=== PATIENT | male | born 1975 | race Caucasian/White ===

== ENCOUNTER 2022-01-02 17:34 | Emergency (ER) | payer MEDICAID, SELFPAY ==
[2022-01-02 17:39] VITALS: BP 133/85; PULSE 75; RESP 18; TEMP 36.9; O2SAT 98
--- NOTE | 2022-01-02 17:45 | DI.RAD_ITS ---
Exam(s) XR SHOULDER RT COMPLETE 2+V EXAM: XR SHOULDER RT COMPLETE 2+V CLINICAL HISTORY: fall. TECHNIQUE: 2D digital imaging was performed of the right shoulder. Four images were obtained. AP, Grashey, Y-view and axillary views were obtained. COMPARISON: No exams were available for comparison FINDINGS: BONES: No acute fracture is present. No bony destructive lesion is seen. JOINTS: No dislocation present. Degenerative changes are seen at the acromioclavicular joint and in t he visualized thoracic spine. SOFT TISSUE: Normal. IMPRESSION: No acute abnormality. DATA REPOSITORY: RADIATION DOSE DELIVERED:
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
--- NOTE | 2022-01-02 18:30 | DI.VRAD_ITS ---
PROCEDURE INFORMATION: Exam: XR Right Shoulder Exam date and time: 01/02/2022 6:05 PM Age: 46 years old Clinical indication: Right shoulder pain, Fall TECHNIQUE: Imaging protocol: Radiologic exam of the Right shoulder. Views: 2 or more views. COMPARISON: No relevant prior studies available. FINDINGS: Bones/joints: No acute fracture. No dislocation. No AC joint separation. Thoracic spine degenerative changes. Soft tissues: No soft tissue radiopaque foreign body or soft tissue calcification. IMPRESSION: No acute findings. Dictated and Authenticated by: Louie Newberry MD. Ordering:JORDYN Gordon MD
== END 2022-01-02 19:01 | disposition home or self-care (01) ==
PROVIDERS: Emergency Provider Student in an Organized Health Care Education/Training Program
DX: S49.81XA Other specified injuries of right shoulder and upper arm, initial encounter (principal); V29.91XA Electric (assisted) bicycle rider (driver) (passenger) injured in unspecified traffic accident, initial encounter
CPT/HCPCS: 99283; 73030

== ENCOUNTER 2022-01-19 07:07 | Emergency (ER) | payer MEDICAID, SELFPAY ==
[2022-01-19] VITALS (27 sets, daily range): BP systolic 123–160; BP diastolic 66–83; PULSE 45–109; RESP 8–38; TEMP 36.4; O2SAT 95–100
--- NOTE | 2022-01-19 07:30 | DI.CT_ITS ---
Exam(s) CT ABDOMEN PELVIS W EXAM: CT ABDOMEN PELVIS W CLINICAL HISTORY: upper abd pain, r/o pancreatitis,biliary colic TECHNIQUE: COMPARISON: No exams were available for comparison FINDINGS: CT examination of the abdomen and pelvis was performed with bolus infusion of 100 cc of Omnipaque 350 . Images obtained through the lung bases are unremarkable. There is moderate gastric distention which is nonspecific. The liver appears normal with no evidence of a focal mass. Spleen is unremarkable in appearance.. Gallbladder has been surgically removed, bile ducts are unremarkable. Pancreas is unremarkable in appearance. Adrenals appear normal bilaterally. Kidneys appear normal with no evidence of renal mass, hydronephrosis, or nephrolithiasis. Unremarkab le bladder. There is no evidence of abdominal or pelvic adenopathy. Abdominal aorta is of normal diameter and no abnormality is seen involving major visceral branches.. Appendix is normal. No evidence diverticulitis or bowel obstruction. No significant abdominal wall hernia seen. Impression: Negative CT examination of the abdomen and pelvis. RADIATION DOSE DELIVERED: Total DLP Total DLP DATA REPOSITORY: All CT scans at this facility are submitted to the National Radiology Data Registry (NRDR) Dose Index Registry (DIR) with the [employer] (ACR). RADIATION OPTIMIZATION: All CT scans at this facility use at least one of these dose optimization te chniques: automated exposure control; mA and/or kV adjustment per patient size (includes targeted exa ms where dose is matched to clinical indication); or iterative reconstruction.
--- NOTE | 2022-01-19 07:37 | ED.GENADUL_ITS ---
Discharge Plan Disposition Patient Disposition: Home Condition: Improving Discharge Details Clinical Impression: Nausea & vomiting Primary Care Provider: [facility]elineLocal ED Provider: Evan Vargas Home Meds and New Rx's Prescriptions: No Action divalproex [Depakote] 500 mg Tablet,Delayed Release (Dr/Ec) See Rx Instructions .ROUTE .COMPLEX Rx Instructions: Take 1000 mg in the AM and 1500 at night Discharge Instructions Instructions: Acute Nausea and Vomiting (ED) Additional Instructions: Please follow-up with primary care and GI as needed. Please return to the emergency department for any worsening symptoms. Discharge Data Discharge Date/Time-TO BE ENTERED AT DEPARTURE: 01/19/22 09:36 Medical Decision Making <Lacy Apple DO - Last Filed: 01/23/22 15:02> Dr. Apple 0730 -- 46-year-old male with history of pancreatitis and former alcohol use presents for upper abdominal pain and vomiting for the past 2 days. Blood pressure is moderately elevated. He is afebrile. Patient appears significantly uncomfortable, holding abdomen, moaning, writhing in stretcher and occasionally vomiting light brown in emesis bag. No hematemesis noted. His abdomen appears tense and is tender in the upper abdomen but there is no significant rigidity, guarding or peritoneal signs. Differential diagnosis includes pancreatitis, gastritis, biliary colic, cholecystitis, gastroenteritis. We will place an IV, bolus IV fluids, screening labs, CT abdomen and pelvis and give a dose of IV Dilaudid, IV Zofran and reassess. 0800 -- Case endorsed to Dr. Vargas to follow up on labs and imaging and final disposition. Dr. Vargas 9: 22 patient resting comfortably still endorsing some nausea and dry heaving. Consider component of gastroparesis. No evidence of obstruction on CT. Labs largely unremarkable lipase normal. Consider viral versus foodborne versus medication related as patient is on valproic acid. Will trial droperidol, close reassessment, likely discharge home with GI follow-up and primary care 9: 33 patient no longer vomiting. Patient is adamant that he needs to leave immediately as his wants to pick him up. Patient was given primary care and GI follow-up. Medical Records Medical records reviewed: Yes I reviewed the patient's medical records. <Evan Vargas MD - Last Filed: 01/19/22 09:36> 46-year-old male with history of pancreatitis and former alcohol use presents for upper abdominal pain and vomiting for the past 2 days. Pressure is elevated. He is afebrile. Patient appears significantly uncomfortable, holding abdomen, moaning, writhing in stretcher and occasionally vomiting light brown in emesis bag. No hematemesis noted. His abdomen appears tense and is tender in the upper abdomen but there is no significant rigidity, guarding or peritoneal signs. Differential diagnosis includes pancreatitis, gastritis, biliary colic, cholecystitis, gastroenteritis. We will place an IV, bolus IV fluids, screening labs, CT abdomen and pelvis and give a dose of IV Dilaudid, IV Zofran and reassess. 9: 22 patient resting comfortably still endorsing some nausea and dry heaving. Consider component of gastroparesis. No evidence of obstruction on CT. Labs largely unremarkable lipase normal. Consider viral versus foodborne versus medication related as patient is on valproic acid. Will trial droperidol, close reassessment, likely discharge home with GI follow-up and primary care 9: 33 patient no longer vomiting. Patient is adamant that he needs to leave immediately as his wants to pick him up. Patient was given primary care and GI follow-up. Sign Out No HPI <Lacy Apple, - Last Filed: 01/23/22 15:02> General Mode of arrival: ambulatory . Date/Time Provider Initiated Documentation: 01/19/22 07:11 . Limitations to Documentation: no limitations . Information obtained by: patient . HPI Narrative: Patient is a 46-year-old male with a history of pancreatitis presents to the ED with complaint of vomiting and upper abdominal pain for the past 2 days. Aaron gaitan describes the pain as constant, burning and sharp located mostly in the upper abdomen. He states he has been vomiting multiple times daily and states it is brown and looks like shit. He denies any hematemesis. He states he has not drank any alcohol for the past 2 years. He states he smokes marijuana but denies any other drug use. He took Tylenol earlier today without relief. He states he drove himself to the emergency department. He states he has been having normal bowel movements and denies any diarrhea or rectal bleeding. He denies any known fever or urinary symptoms. Related Data Home Medications Medication Instructions Recorded Confirmed divalproex 500 mg tablet,delayed See Rx Instructions .Route .COMPLEX 01/19/22 01/19/22 release (Depakote) Allergies Allergy/AdvReac Type Severity Reaction Status Date / Time No Known Allergies Allergy Unverified 01/19/22 07:18 General Stated Complaint: Abd Prob JENNIFER: 3 Review of Systems <Lacy Apple DO - Last Filed: 01/23/22 15:02> All systems reviewed & are unremarkable except as noted in HPI and below Constitutional Constitutional: Reports as per HPI, Denies chills and Denies fever(s) Eyes Eyes: Denies blurry vision ENT Ears, Nose, Mouth, and Throat: Denies dizziness, Denies sore throat and Denies throat swelling Cardiovascular Cardiovascular: Denies chest pain and Denies dyspnea Respiratory Respiratory: Denies cough and Denies dyspnea Gastrointestinal Gastrointestinal: Reports abdominal pain, Denies diarrhea and Reports vomiting Genitourinary Genitourinary: Denies hematuria and Denies dysuria Musculoskeletal Musculoskeletal: Denies back pain and Denies numbness Integumentary/Breasts Skin/Breast: Denies lesions and Denies rash Neurologic Neurologic: Denies dizziness, Denies localized weakness and Denies numbness Allergic/Immunologic Allergic/Immunologic: Denies throat swelling PFSH <Lacy Apple DO - Last Filed: 01/23/22 15:02> All Active Problems (Updated 01/19/22 @ 09:35 by Evan Vargas MD) Nausea & vomiting (Acute) Acute pain of right shoulder (Acute) Medical History (Updated 01/19/22 @ 09:35 by Evan Vargas MD) Bipolar affective disorder Surgical History (Updated 01/19/22 @ 07:54 by Lacy Apple DO) No significant past surgical history Social History Smoking/Tobacco Use Status: Current every day Tobacco Type: cigarettes Smoking risk assessment performed?: Yes Alcohol Intake: former Drug use: Never Substance use type: does not use Do you feel safe at home: Yes Do you feel safe in your relationship?: Yes Exam <Lacy Apple DO - Last Filed: 01/23/22 15:02> Const General: cooperative and uncomfortable Orientation: alert, awake and oriented x3 Other: Writhing around stretcher moaning and holding his abdomen and emesis bag. HENMT Head: normal to inspection Face and sinus: normal facial exam Eyes General: appearance normal, both eyes and all related structures Pupils: PERRL EOM: EOM intact bilaterally Neck Neck: normal visual inspection and No submandibular swelling Lymphatic: no lymphadenopathy noted Chest Chest: normal inspection of the chest and no tenderness Resp Effort & Inspection: normal respiratory effort and able to speak in complete sentences Auscultation: clear to auscultation bilaterally Cardio Rate: regular rate Rhythm: regular rhythm GI Inspection: normal to inspection Palpation: soft, not firm, not rigid and tender in the epigastrum, in the LUQ and in the RUQ Auscultation: hypoactive bowel sounds Skin General skin exam: no rashes or lesions noted Neuro General: patient alert, patient awake and patient oriented x3 Cognition: normal cognition Speech: speech normal Motor: muscle tone normal throughout Sensory Exam: no sensory deficits noted Extrem General: normal to inspection, full ROM, capillary refill normal, no calf tenderness bilaterally and no edema Psych Appearance: grossly normal Mental Status: mental status grossly normal Speech and Movement: speech and movement normal Affect: normal affect Course <DO Sangita Mena Last Filed: 01/23/22 15:02> Vital Signs Vital signs: Vital Signs Temperature 97.5 F L 01/19/22 07:12 Pulse 55 L 01/19/22 07:12 Respiratory Rate 14 01/19/22 07:12 Blood Pressure 148/82 H 01/19/22 07:12 Pulse Oximetry 99 01/19/22 07:12 Temperature 97.5 F L 01/19/22 07:12 Temperature Source Temporal Artery Scan 01/19/22 07:12 Pulse 55 L 01/19/22 07:12 Respiratory Rate 14 01/19/22 07:12 Respiratory Effort Non-Labored 01/19/22 07:15 Blood Pressure 148/82 H 01/19/22 07:12 Blood Pressure Position Sitting 01/19/22 07:12 Pulse Oximetry 99 01/19/22 07:12 Oxygen Delivery Method Room Air 01/19/22 07:12 Oxygen Flow Rate 0 01/19/22 07:12 Pain Level 10 01/19/22 07:15 Sign Out <DO Sangita Mena Filed: 01/23/22 15:02> Sign Out Data: Sign Out Comment: Vomiting and upper abdominal pain for 2 days. History of pancreatitis. Follow-up on labs and imaging and final disposition. Last updated by Lacy Apple DO at 01/19/22 07:39
[2022-01-19 07:43] LABS: Abs Immature Grans 0.04 10^3/uL (0.0-0.06); Absolute Eosinophil Count 0.44 10^3/uL (0.0-0.7); Absolute Monocyte Count 0.85 10^3/uL (0.1-0.8); Basophils % 0.9; Eosinophils % 3.8; HCT 42.9 % (40.0-50.0); HGB 14.3 g/dL (13.5-17.5); Immature Grans % 0.3; Lymphocytes % 24.3; MCH 29.9 pg (27.0-33.0); MCHC 33.3 % (32.0-36.0); MCV 90 fL (80-95); MPV 11.5 fL (8.0-11.0); Monocytes % 7.4; Neutrophils % 63.3; Platelet Count 271 10^3/uL (130-400); RBC 4.78 10^6/uL (4.36-5.78); RDW 12.6 % (11.8-14.1); RDW-SD 41.5 fL; WBC 11.54 10^3/uL (4.4-10.8)
[2022-01-19] MEDS: HYDROmorphone 2 MG/ML SYR 1 MG IVP (07:46)
[2022-01-19] MEDS: Normal Saline 1,000 ML 1000 ML IV (07:46)
[2022-01-19] MEDS: Ondansetron 4 MG/2 ML VIAL IVP (07:46)
[2022-01-19 08:03] LABS: ALT 15 U/L (16-63); AST 13 U/L (15-37); Albumin 3.9 g/dL (3.4-5.0); Alkaline Phosphatase 71 U/L (46-116); BUN 18 mg/dL (7-18); Bilirubin, Total 0.3 mg/dL (0.2-1.0); CREATININE 0.9 mg/dL (0.70-1.30); Calcium 9.2 mg/dL (8.5-10.1); Chloride 103 mmol/L (98-107); Estimated GFR 106.67 (mL/min/1.73m2); Glucose 122 mg/dL (74-106); Lipase 237 U/L (73-393); Magnesium 1.8 mg/dL (1.8-2.4); Sodium 139 mmol/L (136-145)
[2022-01-19 08:06] LABS: Troponin I < 50 ng/L (<or=60)
[2022-01-19] MEDS: Omnipaque 350 MG/ML 100 ML BTL IJ (08:09)
[2022-01-19] MEDS: Normal Saline - Diluent 50 ML VIAL IJ (08:09)
--- NOTE | 2022-01-19 09:13 | DI.VRAD_ITS ---
PROCEDURE INFORMATION: Exam: CT Abdomen And Pelvis With Contrast Exam date and time: 01/19/2022 7:58 AM Age: 46 years old Clinical indication: Abdominal pain TECHNIQUE: Imaging protocol: Computed tomography of the abdomen and pelvis with contrast. COMPARISON: No relevant prior studies available. FINDINGS: Limitations: Paucity of fat. Liver: Normal. No mass. Gallbladder and bile ducts: The gallbladder is surgically absent. No biliary dilatation. Pancreas: Normal. No ductal dilation. Spleen: Normal. No splenomegaly. Adrenal glands: Normal. No mass. Kidneys and ureters: Normal. No hydronephrosis. Stomach and bowel: Non-specific moderate to marked distention of the stomach with fluid. Moderate stool burden. No other gross bowel abnormalities. No obstruction. Appendix: Normal appendix. Intraperitoneal space: Unremarkable. No free air. No significant fluid collection. Vasculature: Unremarkable. No abdominal aortic aneurysm. Lymph nodes: Unremarkable. No enlarged lymph nodes. Urinary bladder: Unremarkable as visualized. Reproductive: Unremarkable as visualized. Bones/joints: Scattered small bone islands in the right acetabulum and right femoral head. No acute or suspicious osseous abnormalities. Grade 1 retrolisthesis of L5 on S1. Moderate degenerative changes of the lower thoracic spine. Chronic appearing mild loss of height of the T11 vertebral body. Soft tissues: Unremarkable. IMPRESSION: 1. Non-specific moderate to marked distention of the stomach with fluid. No focally obstructing mass is identified. These findings could be seen in the setting of gastroparesis. If indicated, radionuclide gastric emptying study may be considered for further evaluation. 2. Moderate stool burden. Dictated and Authenticated by: Sanjana Romano MD. Ordering:SERAFIN House MD
[2022-01-19] MEDS: Droperidol 5 MG/2 ML VIAL 1.25 MG IVP (09:24)
== END 2022-01-19 09:36 | disposition home or self-care (01) ==
PROVIDERS: Physician Assistant; Emergency Provider Emergency Medicine
DX: R11.2 Nausea with vomiting, unspecified (principal); R10.10 Upper abdominal pain, unspecified; R10.816 Epigastric abdominal tenderness; R10.811 Right upper quadrant abdominal tenderness; R10.812 Left upper quadrant abdominal tenderness; Z87.19 Personal history of other diseases of the digestive system
CPT/HCPCS: 36415; 80053; 83690; 96361; 96374; 96375; 99285; 74177; 83735; 84484; 85025; 99284; J1170; J1790; J2405; J3490

== ENCOUNTER 2022-04-14 00:41 | Outpatient (CLI) | payer MEDICAID, SELFPAY ==
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
== END 2022-04-14 01:01 ==
LOC: DI 00:42
PROVIDERS: Visit Provider Student in an Organized Health Care Education/Training Program
DX: M75.101 Unspecified rotator cuff tear or rupture of right shoulder, not specified as traumatic (principal)
CPT/HCPCS: 73221

== ENCOUNTER 2022-06-13 09:55 | Outpatient (REF) | payer MEDICAID, SELFPAY ==
[2022-06-14 13:35] LABS: Chlamydia Result Negative (Negative); GC Result Negative (Negative)
== END 2022-06-13 09:56 | disposition home or self-care (01) ==
LOC: LBN 09:55
PROVIDERS: PCP Nurse Practitioner; Referring Provider Nurse Practitioner; Visit Provider Nurse Practitioner
DX: R30.0 Dysuria (principal)
CPT/HCPCS: 87491; 87591; 87086

== ENCOUNTER 2022-08-14 16:13 | Emergency (ER) | payer MEDICAID, SELFPAY ==
[2022-08-14 16:14] VITALS: BP 142/78; PULSE 71; RESP 17; TEMP 36; O2SAT 98
--- NOTE | 2022-08-14 18:02 | NUR.NOTE ---
Nursing Note: Pt left without being seen
== END 2022-08-14 18:34 | disposition left against medical advice (07) ==
PROVIDERS: PCP Nurse Practitioner
DX: Z53.21 Procedure and treatment not carried out due to patient leaving prior to being seen by health care provider (principal)

== ENCOUNTER 2022-08-16 23:40 | Emergency (ER) | payer MEDICAID, SELFPAY ==
[2022-08-16 23:43] VITALS: BP 137/84; PULSE 110; RESP 19; TEMP 36.2; O2SAT 97
--- NOTE | 2022-08-17 | DI.CT_ITS ---
Exam(s) CT LUMBAR SPINE RECONS CT ABDOMEN PELVIS WO EXAM: CT ABDOMEN PELVIS WO CLINICAL HISTORY: right lower back pain and right leg numbness. TECHNIQUE: Imaging Protocol: Axial computed tomography images with coronal and sagittal reformatted images were created and reviewed. Images of the lumbar spine were reconstructed using bone algorithm . Oral: no COMPARISON: CT CT ABDOMEN PELVIS W from 01/19/[address] LUMBAR SPINE RECONS from 08/17/2022 FINDINGS: ABDOMEN: Lung Bases: Normal where visualized. Liver: Normal density. No measurable mass. Gallbladder and biliary tract: Status post cholecystectomy no radiodense calculus or dilation. Pancreas: Normal density, no abnormal calcifications or inflammatory process. Spleen: Normal. Kidneys: Normal size, contour and axis. No radiodense stones or obstructive uropathy. No masses seen. Adrenal glands: No masses seen. Lymph nodes: Within normal limits. Abdominal Aorta: Abdominal portion non-dilated. Lumbar spine: No acute fractures. Endplate osteophytes in the lower thoracic and lumbar levels. Baas trup's disease. Mild facet degenerative changes. No spondylolysis or spondylolisthesis. Mild disc bulging. L5 laminectomy defect. No gross evidence of focal disc herniation. Bilateral neural yesi inal narrowing at L4-5 and L5-S1. PELVIS: Bladder: Symmetric distention, no gross wall thickening. Bowel: Large quantity of stool noted throughout the colon. No obstruction or bowel wall thickening. Appendix normal. Peritoneal cavity: No ascites, collection or mesenteric inflammatory response. Reproductive organs: Within normal limits. Bones: Within normal limits. IMPRESSION: Large quantity of stool throughout the colon consistent with constipation. No evidence of bowel obst ruction. No acute abnormality in the lumbar spine. Degenerative changes noted. RADIATION DOSE DELIVERED: 594.61 mGy.cm Total DLP DATA REPOSITORY: All CT scans at this facility are submitted to the National Radiology Data Registry (NRDR) Dose Index Registry (DIR) with the [employer] (ACR). RADIATION OPTIMIZATION: All CT scans at this facility use at least one of these dose optimization te chniques: automated exposure control; mA and/or kV adjustment per patient size (includes targeted exa ms where dose is matched to clinical indication); or iterative reconstruction.
--- NOTE | 2022-08-17 00:03 | ED.GENADUL_ITS ---
Discharge Plan Disposition Patient Disposition: Home Condition: Good Discharge Details Clinical Impression: Low back pain radiating to right leg Primary Care Provider: Jinny Hogan ED Provider: Samir Hazel Home Meds and New Rx's Prescriptions: New lidocaine [Lidoderm] 5 % adhesive patch,medicated 1 patch Topical Q24H Qty: 15 0RF prednisone 50 mg tablet 50 mg PO DAILY Qty: 5 0RF No Action divalproex [Depakote] 500 mg tablet,delayed release (DR/EC) 500 mg PO DAILY Qty: 90 0RF bupropion HCl [Wellbutrin XL] 300 mg tablet extended release 24 hr 300 mg PO QAM Qty: 90 0RF lorazepam [Ativan] 0.5 mg tablet 0.5 mg PO BID Qty: 60 0RF buprenorphine-naloxone 8-2 mg tablet, sublingual 2.5 tab sublingual DAILY gabapentin 600 mg tablet 600 mg PO BID Qty: 8 0RF albuterol sulfate 90 mcg/actuation HFA aerosol inhaler 2 puff inhalation Q4H PRN Discharge Instructions Instructions: Lumbar Radiculopathy (ED) Additional Instructions: At this time your symptoms are concerning for what is called lumbar radiculopathy. You do have notable disc disease and disc bulging, however thankfully her symptoms are inconsistent with compression of your spinal cord. The irritation of your nerves can cause significant pain and take a fair bit of time to heal. I expect 1 to 2 months for potential resolution. In the meantime do not lift anything greater than 5 pounds for the next 2 weeks. Avoid any significant vigorous physical activity. Perform easy gentle regular activities at home without any significant bending or lifting. Please take the steroids as directed. You have been given a prescription for Lidoderm patch. If your insurance does not cover this you can get [id number] Lidoderm patches at 4% which are almost just as effective. Please take the pain pills only as needed for breakthrough pain, do not take it when driving or operating any vehicles or heavy machinery, swimming, taking long baths, or operating firearms. Please use a heating pad as often as possible on your back. Perform daily gentle stretches on your back. Please continue to take the Tylenol and Motrin. You can take 1000 mg of Tylenol every 6 hours and 600 mg of ibuprofen every 6 hours. We have placed a referral with the [facility] for follow-up. Please discuss with your primary care provider potential further imaging of nonemergent MRI on an outpatient basis If you notice any worsening of your symptoms, or any new symptoms such as vomiting, diarrhea, fever, chills, shortness of breath, chest pain, numbness or tingling in your groin or legs, weakness in your legs, loss of control for your bowels or bladder, or fainting , please return immediately to the emergency department for reevaluation. Please follow up with your primary care provider as soon as possible for reassessment and reevaluation. As always, it was a pleasure participating in your medical care today. Referrals: Jinny Hogan NP [Primary Care Provider] - Medical Decision Making This is a 46-year-old male with a previous history of substance abuse and alcohol use, COPD, hepatitis C, hypertension, bipolar type I, previous back injury, who presents today for right lower back pain. Patient states that about 2 to 3 weeks ago he was working, stepped funny and developed sudden onset right lower back pain. Pain is continued. Over the last 2 to 3 days he has had tingling and weakness down his right lower extremity all the way to his heel. Patient denies any saddle anesthesia, numbness or tingling in the groin, change in sensation when wiping. Patient denies any change in sensation during sexual intercourse, difficulty achieving or maintaining an erection or ejaculation, bowel or bladder incontinence, leakage, or retention. Patient denies any atypical falls or imbalance. He has not taken any NSAIDs today. Pain is made worse when he stands or bends or walks. Improved by nothing. No other complaints at this time. He denies any IV or illicit drug use currently. Exam seems to demonstrate tenderness over the right SI joint, no midline lumbar spine tenderness though. No saddle anesthesia, subjective tingling going down the lateral aspect of the leg and to the heel but intact sensation. Normal strength for the right lower extremity compared to the left, normal vascular exam. However patient does demonstrate slower and more restricted movement for the right lower extremity compared to the left. Additionally he does appear to demonstrate slight diminishment in strength for flexion of the right knee in comparison to the left. He still does demonstrate good dorsiflexion plantarf lexion of the great toe. Differential includes lumbar radiculopathy, SI joint pathology/sacroiliitis. Fracture less likely. Symptoms appear clinically inconsistent with cauda equina syndrome at this time. We will give prednisone, Toradol, acetaminophen and Lidoderm patch for treatment of suspected mild radiculopathy, muscle spasm and potential SI joint pain. We will get CT scan of the L-spine, monitor closely and reassess. No current clinical indications for emergent MRI. 2:[address] scan of the abdomen pelvis shows no acute process, CT scan of the lumbar spine shows evidence of multiple broad-based disc bulges at L4-L5, L3-L4, and L5-S1. No evidence of cord compression though. Clinically there is no evidence of cord compression from the central component, or cauda equina. I do suspect he has peripheral radiculopathy causing his right leg symptoms at this time. We will give steroids for home use, Lidoderm patches, recommend continued Tylenol and Motrin. Will give 4 tablets of [place] to use for breakthrough pain only. Will place referral for [facility] clinic, and recommend close outpatient follow-up with his PCP for nonemergent further MRI. I have extensively reviewed the treatment plan and discharge instructions with the patient. I have addressed all patient concerns at this time. The patient was made aware of what symptoms to monitor for that would warrant a return to the emergency department. Discussed the plan with the patient, they demonstrate verbal understanding and agreement with our assessment and plan at this time. The documentation in this chart was dictated using [employer] dictation software. Please excuse any dictation errors. FINDINGS: Bones/joints: No acute fracture. Normal alignment. L1-L2: No significant disc bulge or herniation. No severe spinal canal stenosis. No significant neural foraminal narrowing. L2-L3: No significant disc bulge or herniation. No severe spinal canal stenosis. No significant neural foraminal narrowing. L3-L4: Intervertebral disc space narrowing. Broad-based disc bulge, ligamentum flavum hypertrophy and hypertrophic facet arthropathy, resulting in mild central canal stenosis. Mild bilateral foraminal stenosis. L4-L5: Intervertebral disc space narrowing. Broad-based disc bulge, resulting in effacement of the anterior thecal sac. Ligamentum flavum hypertrophy and hypertrophic facet arthropathy, resulting in moderate central canal stenosis. Bilateral foraminal stenosis. L5-S1: Intervertebral disc space narrowing. Broad-based disc bulge, resulting in effacement of the anterior thecal sac. Mild central canal stenosis. Mild bilateral foraminal stenosis. Soft tissues: Please refer to dedicated CT of the abdomen and pelvis. IMPRESSION: Degenerative changes. No acute findings are evident. Thank you for allowing us to participate in the care of your patient. Dictated and Authenticated by: Ankit Perez MD 08/17/2022 1:58 AM Eastern Time ([place] & [place]) FINDINGS: Liver: Normal. No mass. Gallbladder and bile ducts: Cholecystectomy Pancreas: Normal. No ductal dilation. Spleen: Normal. No splenomegaly. Adrenal glands: Normal. No mass. Kidneys and ureters: Nonobstructive nephrolithiasis on the right. Stomach and bowel: Unremarkable. No obstruction. No mucosal thickening. Appendix: No evidence of appendicitis. Intraperitoneal space: Unremarkable. No free air. No significant fluid collection. Vasculature: Unremarkable. No abdominal aortic aneurysm. Lymph nodes: Unremarkable. No enlarged lymph nodes. Urinary bladder: Unremarkable as visualized. Reproductive: Unremarkable as visualized. Bones/joints: Unremarkable. No acute fracture. Soft tissues: Unremarkable IMPRESSION: 1. No acute findings. 2. There is a significant volume of retained stool within the colon. 3. Nonobstructive nephrolithiasis on the right. Thank you for allowing us to participate in the care of your patient. Dictated and Authenticated by: Ankit Perez MD 08/17/2022 1:55 AM Eastern Time ([place] & [place]) HPI General Date/Time Provider Initiated Documentation: 08/16/22 23:54 . HPI Narrative: This is a 46-year-old male with a previous history of substance abuse and alcohol use, COPD, hepatitis C, hypertension, bipolar type I, previous back injury, who presents today for right lower back pain. Patient states that about 2 to 3 weeks ago he was working, stepped funny and developed sudden onset right lower back pain. Pain is continued. Over the last 2 to 3 days he has had tingling and weakness down his right lower extremity all the way to his heel. Patient denies any saddle anesthesia, numbness or tingling in the groin, change in sensation when wiping. Patient denies any change in sensation during sexual intercourse, difficulty achieving or maintaining an erection or ejaculation, bowel or bladder incontinence, leakage, or retention. Patient denies any atypical falls or imbalance. He has not taken any NSAIDs today. Pain is made worse when he stands or bends or walks. Improved by nothing. No other complaints at this time. He denies any IV or illicit drug use currently. Related Data Home Medications Medication Instructions Recorded Confirmed buprenorphine 8 mg-naloxone 2 mg 2.5 tab sublingual DAILY 04/18/22 08/14/22 sublingual tablet albuterol sulfate 90 mcg/actuation 2 puff inhalation Q4H PRN 05/31/22 08/14/22 aerosol inhaler bupropion HCl 300 mg 24 hr tablet, 300 mg PO QAM #90 tabs 06/13/22 08/14/22 extended release (Wellbutrin XL) divalproex 500 mg tablet,delayed 500 mg PO DAILY #90 tabs 06/13/22 08/14/22 release (Depakote) lorazepam 0.5 mg tablet (Ativan) 0.5 mg PO BID #60 tabs 06/13/22 08/14/22 gabapentin 600 mg tablet 600 mg PO BID #8 tabs 07/14/22 08/14/22 lidocaine 5 % topical patch 1 patch topical Q24H #15 ea 08/17/22 (Lidoderm) prednisone 50 mg tablet 50 mg PO DAILY #5 tabs 08/17/22 Previous Rx's Medication Instructions Recorded bupropion HCl 300 mg 24 hr tablet, 300 mg PO QAM #90 tabs 06/13/22 extended release (Wellbutrin XL) divalproex 500 mg tablet,delayed 500 mg PO DAILY #90 tabs 06/13/22 release (Depakote) lorazepam 0.5 mg tablet (Ativan) 0.5 mg PO BID #60 tabs 06/13/22 gabapentin 600 mg tablet 600 mg PO BID #8 tabs 07/14/22 lidocaine 5 % topical patch 1 patch topical Q24H #15 ea 08/17/22 (Lidoderm) prednisone 50 mg tablet 50 mg PO DAILY #5 tabs 08/17/22 Allergies Allergy/AdvReac Type Severity Reaction Status Date / Time No Known Allergies Allergy Verified 08/16/22 08:06 General Stated Complaint: Nk/Back Pain JENNIFER: 4 Review of Systems All systems reviewed & are unremarkable except as noted in HPI and below PFSH All Active Problems (Updated 08/17/22 @ 02:01 by Samir Hazel DO) Low back pain radiating to right leg (Acute) Tendonitis of long head of biceps brachii of right shoulder (Acute) Bursitis of right shoulder (Acute) Bipolar I disorder (Acute) Mixed hyperlipidemia (Acute) COPD (chronic obstructive pulmonary disease) (Chronic) Viral hepatitis C (Chronic) HTN (hypertension) (Chronic) Sprain of right acromioclavicular joint (Acute ~12/2021) Medical History Bipolar affective disorder Elevated liver enzymes Intervertebral disc disorder with radiculopathy of lumbar region Surgical History History of cholecystectomy (~2012) No significant past surgical history Social History Smoking/Tobacco Use Status: Former Tobacco Use Quit status: considering quitting Second Hand Exposure: No Smoking risk assessment performed?: Yes Alcohol Intake: current Alcohol Intake frequency: a few times a month Counseling given: No Drug use: Occasionally Substance use type: marijuana Counseling given: No Adopted: No Caregiver/Support person: No Foster care: No Household members: significant other Housing: house Number of Children: 1 Communication Needs: None Do you need help understanding health information?: Never 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 [employer] Pets and animals: Yes Pets and animals: dog(s) Do you think of yourself as: straight/heterosexual Current gender identity: male What is your relationship status?: How often do you talk on the phone with friends or family?: twice per week How often do you get together with friends or relatives?: once per week Do you belong to any clubs or organized social groups?: no Panel score (0-1 are the most socially isolated patients): 1 NHANES result reviewed/action taken: No What type of physical activity do you participate in: none Seatbelt use: always Helmet use: Yes Drive intox or ride w/intox stage driver: No Working smoke detector in home: Yes Fire extinguisher in home: Yes Carbon monox detector in home: Yes Do you feel safe at home: Yes Do you feel safe in your relationship?: Yes Exam Narrative Exam Narrative: 1.Const: Well-nourished, Well-developed, appearing stated age 2.Eyes: PERRL, no conjunctival injection, and symmetrical lids. 3.ENT: Atraumatic external nose and ears. Moist MM. Neck: Symmetric, trachea midline, No thyromegaly. 4.CVS: +S1/S2, No murmurs or gallops. Peripheral pulses 2+ and equal in all extremities. Brisk capillary refill in all extremities. 5.RESP: Unlabored respiratory effort. Clear to auscultation bilaterally. No wheezes rales or rhonchi 6.GI: Soft, Nontender/Nondistended, No hepatosplenomegaly. No guarding or rebound. 7.MSK: Normocephalic/Atraumatic, Extremities w/o deformity or ttp No cyanosis or clubbing. No midline tenderness to palpation over the CTLS spine. Normal ROM in flexion, extension, side bend, and rotation. Patient does have point tenderness over the right SI joint. Patient has +5 out of 5 strength in the lower extremities in dorsiflexion and plantarflexion, knee extension, hip flexion and extension. Normal strength for dorsiflexion and plantar flexion of the great toe bilaterally. However he does seem to have slightly reduced knee flexion strength. Both legs demonstrate 5 out of 5 strength but he is much slower and m uch more restricted from movements of the right lower extremity. There is +2 over 2 dorsalis pedis pulses bilaterally. There is normal sensation to the skin with light touch at the foot, knee, and hip. Normal saddle sensation. Good sensation over the deep sural nerve area bilaterally. Rectal exam demonstrates good rectal tone with excellent zonia-rectal sensation. Reflexes are +2 over 4 in the patellar reflex bilaterally. +5 out of 5 strength in the medial, ulnar, radial nerve distribution bilaterally in the hands as well as intact light touch sensation to these dermatomes on the hands 8.Skin: Warm, Dry. No rashes or lesions. 9.Neuro: director of public relations II-XII grossly intact. Sensation grossly intact, no focal neurologic deficits. 10.Psych: (AAO) x3. Appropriate mood and affect Course Vital Signs Vital signs: Vital Signs Temperature 36.2 C L 08/16/22 23:43 Pulse 110 H 08/16/22 23:43 Respiratory Rate 19 08/16/22 23:43 Blood Pressure 137/84 08/16/22 23:43 Pulse Oximetry 97 08/16/22 23:43 Temperature 36.2 C L 08/16/22 23:43 Temperature Source Temporal Artery Scan 08/16/22 23:43 Pulse 110 H 08/16/22 23:43 Respiratory Rate 19 08/16/22 23:43 Respiratory Effort Normal 08/16/22 23:45 Blood Pressure 137/84 08/16/22 23:43 Blood Pressure Position Sitting 08/16/22 23:43 Pulse Oximetry 97 08/16/22 23:43 Oxygen Delivery Method Room Air 08/16/22 23:43 Oxygen Flow Rate 0 08/16/22 23:43 Pain Level 8 08/16/22 23:43
[2022-08-17] MEDS: Ketorolac 30 MG/ML VIAL IM (00:11)
[2022-08-17] MEDS: predniSONE 20 MG TAB 60 MG PO (00:11)
[2022-08-17] MEDS: Lidocaine 5% Patch 1 PATCH TP (00:24)
[2022-08-17 00:26] LABS: Bilirubin Negative (Negative); Blood Trace-intact (Negative); Clarity Clear (Clear); Glucose Negative (Negative); Ketones Negative (Negative); Leukocyte Esterase Negative (Negative); Nitrite Negative (Negative); pH 6.5 (5-8)
[2022-08-17 00:36] LABS: Bacteria Rare HPF (Negative); C & S Indicated? No; Crystals Negative HPF (Negative); Epithelial Cells Negative HPF (Negative); Mucus Negative (Negative); RBC 0-2 HPF (0-2); WBC Negative HPF (0-5)
--- NOTE | 2022-08-17 01:56 | DI.VRAD_ITS ---
PROCEDURE INFORMATION: Exam: CT Abdomen And Pelvis Without Contrast Exam date and time: 08/17/2022 12:29 AM Age: 46 years old Clinical indication: Other: Right lower back pain and right leg numbness TECHNIQUE: Imaging protocol: Computed tomography of the abdomen and pelvis without contrast. Radiation optimization: All CT scans at this facility use at least one of these dose optimization techniques: automated exposure control; mA and/or kV adjustment per patient size (includes targeted exams where dose is matched to clinical indication); or iterative reconstruction. COMPARISON: CT ABDOMEN PELVIS W 01/19/2022 7:58 AM FINDINGS: Liver: Normal. No mass. Gallbladder and bile ducts: Cholecystectomy Pancreas: Normal. No ductal dilation. Spleen: Normal. No splenomegaly. Adrenal glands: Normal. No mass. Kidneys and ureters: Nonobstructive nephrolithiasis on the right. Stomach and bowel: Unremarkable. No obstruction. No mucosal thickening. Appendix: No evidence of appendicitis. Intraperitoneal space: Unremarkable. No free air. No significant fluid collection. Vasculature: Unremarkable. No abdominal aortic aneurysm. Lymph nodes: Unremarkable. No enlarged lymph nodes. Urinary bladder: Unremarkable as visualized. Reproductive: Unremarkable as visualized. Bones/joints: Unremarkable. No acute fracture. Soft tissues: Unremarkable. IMPRESSION: 1. No acute findings. 2. There is a significant volume of retained stool within the colon. 3. Nonobstructive nephrolithiasis on the right. Dictated and Authenticated by: Ankit Perez MD. Ordering:VIKAS Dawson MD
--- NOTE | 2022-08-17 01:59 | DI.VRAD_ITS ---
PROCEDURE INFORMATION: Exam: CT Lumbar Spine Without Contrast Exam date and time: 08/17/2022 12:29 AM Age: 46 years old Clinical indication: Low back pain; Additional info: Right lower back pain and right leg numbness TECHNIQUE: Imaging protocol: Computed tomography of the lumbar spine without contrast. Radiation optimization: All CT scans at this facility use at least one of these dose optimization techniques: automated exposure control; mA and/or kV adjustment per patient size (includes targeted exams where dose is matched to clinical indication); or iterative reconstruction. COMPARISON: CT ABDOMEN PELVIS W 01/19/2022 7:58 AM FINDINGS: Bones/joints: No acute fracture. Normal alignment. L1-L2: No significant disc bulge or herniation. No severe spinal canal stenosis. No significant neural foraminal narrowing. L2-L3: No significant disc bulge or herniation. No severe spinal canal stenosis. No significant neural foraminal narrowing. L3-L4: Intervertebral disc space narrowing. Broad-based disc bulge, ligamentum flavum hypertrophy and hypertrophic facet arthropathy, resulting in mild central canal stenosis. Mild bilateral foraminal stenosis. L4-L5: Intervertebral disc space narrowing. Broad-based disc bulge, resulting in effacement of the anterior thecal sac. Ligamentum flavum hypertrophy and hypertrophic facet arthropathy, resulting in moderate central canal stenosis. Bilateral foraminal stenosis. L5-S1: Intervertebral disc space narrowing. Broad-based disc bulge, resulting in effacement of the anterior thecal sac. Mild central canal stenosis. Mild bilateral foraminal stenosis. Soft tissues: Please refer to dedicated CT of the abdomen and pelvis. IMPRESSION: Degenerative changes. No acute findings are evident. Dictated and Authenticated by: Ankit Perez MD. Ordering:VIKAS Dawson MD
--- NOTE | 2022-08-17 02:14 | NUR.NOTE ---
Referral to Care Management to refer patient [place] [facility] [place] the next month or so for back pain.Nursing Note:
--- NOTE | 2022-08-17 15:02 | PDOC.CMACT ---
Date of service: 08/17/22 Time of Service: 15:02 Care Management Activity Note Activity Note Text Activity Note Text: Samir is seen in the ED for low back pain. At the request of ED provider, CM coordinates a referral to [facility] to assist patient in obtaining an appointment for further evaluation and treatment of the back pain. He has Medicaid for insurance.
== END 2022-08-17 02:14 | disposition home or self-care (01) ==
PROVIDERS: Emergency Provider Student in an Organized Health Care Education/Training Program; PCP Nurse Practitioner
DX: M54.50 Low back pain, unspecified (principal); R20.0 Anesthesia of skin
CPT/HCPCS: 96372; 99284; 74176; 81003; 81015; 99283; J1885; J7512

== ENCOUNTER 2022-08-30 02:40 | Outpatient (CLI) | payer MEDICAID, SELFPAY ==
[2022-08-30 07:48] LABS: Abs Immature Grans 0.05 10^3/uL (0.0-0.06); Absolute Basophil Count 0.12 10^3/uL (0.0-0.2); Absolute Eosinophil Count 0.53 10^3/uL (0.0-0.7); Absolute Lymphocyte Count 2.13 10^3/uL (1.2-3.4); Absolute Monocyte Count 1.06 10^3/uL (0.1-0.8); Absolute Neutrophil Count 7.13 10^3/uL (1.2-6.7); Basophils % 1.1; Eosinophils % 4.8; HCT 41.9 % (40.0-50.0); HGB 14.1 g/dL (13.5-17.5); Immature Grans % 0.5; Lymphocytes % 19.3; MCH 30.7 pg (27.0-33.0); MCHC 33.7 % (32.0-36.0); MCV 91 fL (80-95); MPV 10.3 fL (8.0-11.0); Monocytes % 9.6; Neutrophils % 64.7; Platelet Count 246 10^3/uL (130-400); RDW 12.9 % (11.8-14.1); RDW-SD 42.3 fL; WBC 11.02 10^3/uL (4.4-10.8)
[2022-08-30 08:35] LABS: ALT 494 U/L (16-63); AST 369 U/L (15-37); Albumin 3.6 g/dL (3.4-5.0); Alkaline Phosphatase 93 U/L (46-116); Anion Gap 11.8 mmol/L (3-11); BUN 29 mg/dL (7-18); Bilirubin, Total 0.6 mg/dL (0.2-1.0); CO2 27.2 mmol/L (21.0-32.0); CREATININE 0.8 mg/dL (0.70-1.30); Calcium 8.9 mg/dL (8.5-10.1); Calculated LDL 110 mg/dL (<100); Chloride 101 mmol/L (98-107); Cholesterol 190 mg/dL (<200); Estimated GFR 110.53 (mL/min/1.73m2); Glucose 134 mg/dL (74-106); HDL Cholesterol 71 mg/dL (40-60); Potassium 4.1 mmol/L (3.5-5.1); Sodium 140 mmol/L (136-145); Total Protein 7.8 g/dL (6.4-8.2); Triglyceride 45 mg/dL (<150)
[2022-08-31 11:05] LABS: Hepatitis C Ab w Rflx HCV PCR Reactive (Negative)
[2022-09-01 12:20] LABS: HCV RNA Detection Quantitative 2110000 IU/mL (Undetected); HCV RNA Qualitative Detected (Undetected)
== END 2022-08-30 02:41 | disposition home or self-care (01) ==
LOC: LBO 02:40
PROVIDERS: PCP Nurse Practitioner; Visit Provider Nurse Practitioner
DX: B19.20 Unspecified viral hepatitis C without hepatic coma (principal); J45.909 Unspecified asthma, uncomplicated
CPT/HCPCS: 36415; 80053; 80061; 86803; 87522; 85025

== ENCOUNTER 2022-08-30 07:45 | Emergency (ER) | payer MEDICAID, SELFPAY ==
[2022-08-30 07:48] VITALS: BP 116/65; PULSE 74; RESP 16; TEMP 36.8; O2SAT 99
--- NOTE | 2022-08-30 08:00 | DI.RAD_ITS ---
Exam(s) XR ELBOW RT COMPLETE EXAM: XR ELBOW RT COMPLETE CLINICAL HISTORY: pain, popping sensation 5 days ago using heavy equ. TECHNIQUE: 2D digital imaging was performed. Three views. COMPARISON: No exams were available for comparison FINDINGS: BONES: No acute fracture is present. No bony destructive lesion is seen. JOINTS: The elbow is normally aligned. No joint effusion is seen. SOFT TISSUE: Normal. IMPRESSION: Unremarkable radiographs of the right elbow. DATA REPOSITORY: RADIATION DOSE DELIVERED:
[2022-08-30] MEDS: Ibuprofen 600 MG TAB PO (08:12)
--- NOTE | 2022-08-30 08:26 | W.ED.GENAD ---
Discharge Plan Disposition Patient Disposition: Home Condition: Stable Discharge Details Clinical Impression: Sprain of elbow, right Primary Care Provider: Jinny Hogan ED Provider: Tanvir Carver Home Meds and New Rx's Prescriptions: Continued divalproex [Depakote] 500 mg tablet,delayed release (DR/EC) 500 mg PO DAILY Qty: 90 0RF lorazepam [Ativan] 0.5 mg tablet 0.5 mg PO BID Qty: 60 0RF buprenorphine-naloxone 8-2 mg tablet, sublingual 2.5 tab sublingual DAILY gabapentin 600 mg tablet 600 mg PO BID Qty: 8 0RF albuterol sulfate 90 mcg/actuation HFA aerosol inhaler 2 puff inhalation Q4H PRN lidocaine [Lidoderm] 5 % adhesive patch,medicated 1 patch Topical Q24H Qty: 15 0RF Discontinued prednisone 50 mg tablet 50 mg PO DAILY Qty: 5 0RF Patient Comments: not taking anymore No Action bupropion HCl [Wellbutrin XL] 300 mg tablet extended release 24 hr 300 mg PO QAM Qty: 90 0RF Patient Comments: Does not take r/t not able to get a new script Discharge Instructions Instructions: Elbow Sprain (ED) Additional Instructions: Please use sling over the next 1 week. Rest your elbow with no heavy lifting over the next 1 week. Please take ibuprofen over the counter. Take 600mg by mouth every 6 hours as needed for pain. Please contact your primary care physician to arrange follow-up. Return to the ER immediately for any worsening or new concerning symptoms. Stand Alone Forms: Work Release Referrals: Jinny Hogan, ROVING DEPARTMENT SUPERVISOR [Primary Care Provider] - Medical Decision Making 46-year-old male here with swelling and pain of his right lateral elbow 5 days after using heavy concrete cutting saw and experiencing a popping sensation. Suspect elbow sprain but consider avulsion fracture. X-ray of the right elbow was reviewed and interpreted by me: No avulsion. Plan to treat with NSAIDs and sling. I recommended rest over the next week. Usual customary discharge instructions reviewed with the patient. HPI General Mode of arrival: ambulatory. Date/Time Provider Initiated Documentation: 08/30/22 07:58. Limitations to Documentation: no limitations. Information obtained by: patient. HPI Narrative: 46-year-old male presents with cc of right elbow pain. Patient notes he was using a concrete saw on Sunday, 5 days ago, experienced a popping sensation in his right posterior lateral elbow. He noticed swelling of the area that has persisted. Pain is worse on palpation but he is able to range his elbow. No associated numbness or tingling. No other injury. Related Data Home Medications Medication Instructions Recorded Confirmed buprenorphine 8 mg-naloxone 2 mg 2.5 tab sublingual DAILY 04/18/22 08/30/22 sublingual tablet albuterol sulfate 90 mcg/actuation 2 puff inhalation Q4H PRN 05/31/22 08/30/22 aerosol inhaler bupropion HCl 300 mg 24 hr tablet, 300 mg PO QAM #90 tabs 06/13/22 08/30/22 extended release (Wellbutrin XL) divalproex 500 mg tablet,delayed 500 mg PO DAILY #90 tabs 06/13/22 08/30/22 release (Depakote) lorazepam 0.5 mg tablet (Ativan) 0.5 mg PO BID #60 tabs 06/13/22 08/30/22 gabapentin 600 mg tablet 600 mg PO BID #8 tabs 07/14/22 08/30/22 lidocaine 5 % topical patch 1 patch topical Q24H #15 ea 08/17/22 08/30/22 (Lidoderm) Previous Rx's Medication Instructions Recorded bupropion HCl 300 mg 24 hr tablet, 300 mg PO QAM #90 tabs 06/13/22 extended release (Wellbutrin XL) divalproex 500 mg tablet,delayed 500 mg PO DAILY #90 tabs 06/13/22 release (Depakote) lorazepam 0.5 mg tablet (Ativan) 0.5 mg PO BID #60 tabs 06/13/22 gabapentin 600 mg tablet 600 mg PO BID #8 tabs 07/14/22 lidocaine 5 % topical patch 1 patch topical Q24H #15 ea 08/17/22 (Lidoderm) Allergies Allergy/AdvReac Type Severity Reaction Status Date / Time No Known Allergies Allergy Verified 08/30/22 07:54 General Stated Complaint: Orthopedic JENNIFER: 4 Review of Systems Constitutional Constitutional: Reports as per HPI [facility] All Active Problems (Updated 08/30/22 @ 08:37 by Tanvir Carver MD) Low back pain radiating to right leg (Acute) Sprain of elbow, right (Acute) Tendonitis of long head of biceps brachii of right shoulder (Acute) Bursitis of right shoulder (Acute) Bipolar I disorder (Acute) Mixed hyperlipidemia (Acute) COPD (chronic obstructive pulmonary disease) (Chronic) Viral hepatitis C (Chronic) HTN (hypertension) (Chronic) Sprain of right acromioclavicular joint (Acute ~12/2021) Medical History Bipolar affective disorder Elevated liver enzymes Intervertebral disc disorder with radiculopathy of lumbar region Surgical History History of cholecystectomy (~2012) No significant past surgical history Social History Smoking/Tobacco Use Status: Current every day Tobacco Type: cigarettes Quit status: considering quitting Second Hand Exposure: No Smoking risk assessment performed?: Yes Alcohol Intake: current Alcohol Intake frequency: a few times a month Counseling given: No Drug use: Occasionally Substance use type: marijuana Counseling given: No Adopted: No Caregiver/Support person: No Foster care: No Household members: significant other Housing: house Number of Children: 1 Communication Needs: None Do you need help understanding health information?: Never 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 [employer] Pets and animals: Yes Pets and animals: dog(s) Do you think of yourself as: straight/heterosexual Current gender identity: male What is your relationship status?: How often do you talk on the phone with friends or family?: twice per week How often do you get together with friends or relatives?: once per week Do you belong to any clubs or organized social groups?: no Panel score (0-1 are the most socially isolated patients): 1 NHANES result reviewed/action taken: No What type of physical activity do you participate in: none Seatbelt use: always Helmet use: Yes Drive intox or ride w/intox trolley coach driver: No Working smoke detector in home: Yes Fire extinguisher in home: Yes Carbon monox detector in home: Yes Do you feel safe at home: Yes Do you feel safe in your relationship?: Yes Exam Extrem Right upper extremity: normal capillary refill, shoulder/upper arm Details: normal to inspection, elbow/forearm Details: tenderness (focally ttp laterally over extensor tendon), swelling Location: of the lateral epicondyle, normal ROM and distal pulses intact; no unusual warmth and no crepitus and wrist Details: normal to inspection Course Vital Signs Vital signs: Vital Signs Temperature 36.8 C 08/30/22 07:48 Pulse 74 08/30/22 07:48 Respiratory Rate 16 08/30/22 07:48 Blood Pressure 116/65 08/30/22 07:48 Pulse Oximetry 99 08/30/22 07:48 Temperature 36.8 C 08/30/22 07:48 Pulse 74 08/30/22 07:48 Respiratory Rate 16 08/30/22 07:48 Respiratory Effort Normal, Non-Labored 08/30/22 07:51 Blood Pressure 116/65 08/30/22 07:48 Blood Pressure Position Sitting 08/30/22 07:48 Pulse Oximetry 99 08/30/22 07:48 Oxygen Delivery Method Room Air 08/30/22 07:48 Oxygen Flow Rate 0 08/30/22 07:48 PAWSS Have you Been Recently Intoxicated or Drunk Within the Last 30 days?: Yes Have you Ever Experienced Previous Episodes of Alcohol Withdrawal?: No Have you ever Experienced Withdrawal Seizures?: No Have you ever Experienced Delirium Tremens(DT)s?: No Have you ever undergone Alcohol Rehabilitation Treatment (i.e, inpt ot outpatient treatment programs)?: No Have you ever Experienced Blackouts?: No Have you ever Combined Alcohol with other Downers within the last 90 days?: No Have you ever Combined Alcohol with any other Substance of Abuse during the last 90 days?: No Result: 1
--- NOTE | 2022-08-30 08:53 | NUR.NOTE ---
Nursing Note: Patient refused to have sling placed and verbalized he did not want to take it home as he has one at home already
== END 2022-08-30 08:52 | disposition home or self-care (01) ==
PROVIDERS: Emergency Provider Student in an Organized Health Care Education/Training Program; PCP Nurse Practitioner
DX: S53.401A Unspecified sprain of right elbow, initial encounter (principal); X58.XXXA Exposure to other specified factors, initial encounter
CPT/HCPCS: 99283; 73080

== ENCOUNTER 2022-12-19 13:36 | Emergency (ER) | payer MEDICAID, SELFPAY ==
[2022-12-19 13:39] VITALS: BP 130/65; PULSE 58; RESP 16; TEMP 36.6; O2SAT 100
--- OUTSIDE RECORDS SUMMARY | 2022-12-19 13:51 | XMS_ITS | Continuity of Care Document ---
Author Name Unknown Organization [facility] Address [address] [place] [address] Care Team Providers Care Roof Bolter Operator Name Role Phone ADILENE HERNANDEZ, TREVOR Thompson Primary Care Physician Encounter [facility] NBR [id number] Date(s): 10/26/22 - 10/26/[address] [address] [place] Encounter Diagnosis Unspecified viral hepatitis C without hepatic coma(Final) - Discharge Disposition: Home or Self Care Attending Physician: Rosy Winston APRN Admitting Physician: Rosy Winston APRN Referring Physician: Rosy Winston APRN Allergies, Adverse Reactions, Alerts No Known Medication Allergies Assessment and Plan Diagnostic Tests Pending * Hep A Ab, Total LC 10/26/22 * HCV RNA by PCR, Qn Rfx Yadira LC 10/26/22 * Miscellaneous Testing LC 10/26/22 Future Scheduled Tests Laboratory* CBC w/ Diff 10/26/22 * Hepatitis B Surface Antigen 10/26/22 * Hepatitis B Surface Antibody 10/26/22 * HIV Ag/Ab Combo 1/2 10/26/22 Medications buprenorphine-naloxone 8 mg-2 mg sublingual tablet 2 tab, SL, Daily, 0 Refill(s) Start Date: 09/24/22 Status: Ordered carisoprodol 350 mg oral tablet 350 mg = 1 tab, Oral, TID, 0 Refill(s) Start Date: 09/24/22 Status: Ordered Depakote ER 500 mg oral tablet, extended release 500 mg = 1 tab, Oral, Daily, # 30 tab, 0 Refill(s) Start Date: 10/26/22 Status: Ordered gabapentin 400 mg oral capsule 400 mg = 1 cap, Oral, TID, # 30 cap, 0 Refill(s) Start Date: 09/24/22 Status: Ordered gabapentin 600 mg oral tablet 600 mg = 1 tab, Oral, TID, # 90 tab, 0 Refill(s) Start Date: 09/24/22 Status: Ordered lidocaine 5% topical film 1 patches, Topical, Daily, remove patches after 12 hours, # 30 patches, 0 Refill(s) Start Date: 09/24/22 Status: Ordered LORazepam 0.5 mg oral tablet 0.5 mg = 1 tab, Oral, BID, 0 Refill(s) Start Date: 09/24/22 Status: Ordered Sublocade 300 mg/1.5 mL subcutaneous solution, extended release INJECT 1 SYRINGE SUBCUTANEOUSLY MONTHLY Start Date: 10/26/22 Status: Ordered Ventolin HFA 90 mcg/inh inhalation aerosol 2 puffs, Inhale, Once, PRN as needed for wheezing, # 18 g, 0 Refill(s) Start Date: 09/24/22 Status: Ordered Problem List Condition Confirmation Course Effective Dates Status H ealth Status Informant Bipolar 1 disorder Confirmed Active COPD - Chronic obstructive pulmonary disease Confirmed Active Dysuria Confirmed Active Elevated liver enzymes level Confirmed Active Hepatitis C Confirmed Active Hyperlipidemia Confirmed Active Hypertension Confirmed Active Ingrown toenail Confirmed Active Low back pain Confirmed Active Shoulder pain Confirmed Active Tobacco use Confirmed Active Procedures Procedure Date Related Diagnosis Body Site Status Cholecystectomy Completed Results Laboratory List Name Date CBC w/ Diff 10/26/22 Comprehensive Metabolic Panel 10/26/22 Hep B Core Ab, Tot LC 10/26/22 Miscellaneous Testing LC 10/26/22 Miscellaneous Testing LC 10/26/22 Automated Diff 10/26/22 Most recent to oldest [Reference Range]: 1 2 WBC [4.8-10.8 K/mcL] 8.4 K/mcL (10/26/22 1:42 PM) RBC [4.20-6.10 Million/mcL] 4.07 Million /mcL *LOW* (10/26/22 1:42 PM) Neutro Auto [42.2-75.2 %] 53.7 % (10/26/22 1:42 PM) Lymph Auto [20.5-51.1 %] 31.7 % (10/26/22 1:42 PM) Clark Auto [1.7-9.3 %] 7.4 % (10/26/22 1:42 PM) Basophil Auto [0.0-0.8 %] 1.4 % *HI* (10/26/22 1:42 PM) BUN [8-26 mg/dL] 13 mg/dL (10/26/22 1:42 PM) Glucose Level [74-106 mg/dL] 104 mg/dL (10/26/22 1:42 PM) Potassium Level [3.5-5.1 mmol/L] 3.9 mmo l/L (10/26/22 1:42 PM) Baso Absolute [0.0-0.2 K/mcL] 0.1 K/mcL (10/26/22 1:42 PM) MCV [80.0-94.0 fL] 88.5 fL (10/26/22 1:42 PM) AST [15-41 IntlUnit/L] 27 IntlUnit/L (10/26/22 1:42 PM) ALT [17-63 IntlUnit/L] 26 IntlUnit/L (10/26/22 1:42 PM) MCHC [32.0-36.0 g/dL] 35.3 g/dL (10/26/22 1:42 PM) Osmolality [275-295 mOsm/kg] 269 mOsm/kg *LOW* (10/26/22 1:42 PM) Sodium Level [134-143 mmol/L] 134 mmol/L (10/26/22 1:42 PM) Lymph Absolute [1.2-3.4 K/mcL] 2.7 K/mcL (10/26/22 1:42 PM) Hct [42.0-52.0 %] 36.0 % *LOW* (10/26/22 1:42 PM) Calcium Level [8.9-10.3 mg/dL] 8.9 mg/dL (10/26/22 1:42 PM) Clark Absolute [0.1-0.6 K/mcL] 0.6 K/mcL (10/26/22 1:42 PM) Albumin Level [3.5-5.0 g/dL] 3.8 g/dL (10/26/22 1:42 PM) Protein Total [6.5-8.1 g/dL] 6.8 g/dL (10/26/22 1:42 PM) MCH [27.0-31.0 pg] 31.2 pg *HI* (10/26/22 1:42 PM) Neutro Absolute [1.4-6.5 K/mcL] 4.5 K/mc L (10/26/22 1:42 PM) Bilirubin Total [0.2-1.2 mg/dL] 0.6 mg/d L (10/26/22 1:42 PM) Hgb [14.0-18.0 g/dL] 12.7 g/dL *LOW* (10/26/22 1:42 PM) Alk Phos [38-130 IntlUnit/L] 52 IntlUnit /L (10/26/22 1:42 PM) MPV [7.4-10.4 fL] 10.2 fL (10/26/22 1:42 PM) Platelets [130-400 K/mcL] 204 K/mcL (10/26/22 1:42 PM) CO2 [22-32 mmol/L] 28 mmol/L (10/26/22 1:42 PM) Eos Absolute [0.0-0.2 K/mcL] 0.5 K/mcL *HI* (10/26/22 1:42 PM) Chloride Level [98-111 mmol/L] 99 mmol/L (10/26/22 1:42 PM) RDW-CV [11.5-14.5 %] 12.2 % (10/26/22 1:42 PM) A/G Ratio [1.0-2.5 g/dL] 1.3 g/dL (10/26/22 1:42 PM) BUN/Creat Ratio [8.0-20.0] 16.5 (10/26/22 1:42 PM) Globulin [2.3-3.5 g/dL] 3.0 g/dL (10/26/22 1:42 PM) Imm Gran Absolute 0.02 *NA* (10/26/22 1:42 PM) Imm Gran Auto [0.0-0.5 %] 0.2 % (10/26/22 1:42 PM) Slide Review Not Indicated (10/26/22 1:42 PM) Hep B Core Ab, Tot LC [Negative] Negativ e 1 *NA* (10/26/22 1:42 PM) Misc Test Result LC COMMENT 2 *NA* (10/26/22 1:42 PM) COMMENT 3 *NA* (10/26/22 1:42 PM) Creatinine Level [0.61-1.24 mg/dL] 0.79 mg/dL (10/26/22 1:42 PM) Anion Gap [3.0-12.0] 7.0 (10/26/22 1:42 PM) Eos, Auto [0.00-3.00 %] 5.60 % *HI* (10/26/22 1:42 PM) eGFR CKD-EPI [>=60 mL/min/1.73 m2] 111 m L/min/1.73 m2 (10/26/22 1:42 PM) 1Result Comment: Performed At: [facility] [id number] Ciara Alfred MD Ph:[phone] 2Result Comment: Test Ordered: [id number] Hepatitis B Surf Ab Quant Hepatitis B Surf Ab Quant <3.1 [L ] mIU/mL RN Reference Range: Immunity>9.9 Status of Immunity Anti-HBs Level Inconsistent with Immunity 0.0 - 9.9 Consistent with Immunity >9.9 Performed At: [facility] [id number] Ciara Alfred MD Ph:[phone] 3Result Comment: Test Ordered: [id number] HBsAg Screen HBsAg Screen Negative RN Reference Range: Negative Performed At: [facility] [id number] Ciara Alfred MD Ph:[phone] Social History Social History Type Response Tobacco Current everyday tob acco user Tobacco Use:. Sex Patient Care team information Care Team Personnel Name: TREVOR HEAD NP Position: No Access Member Role: Primary Care Physician Address: Address: [facility] [address]
--- OUTSIDE RECORDS SUMMARY | 2022-12-19 13:51 | XMS_ITS | Continuity of Care Document ---
Author Name Unknown Organization [facility] Address [address] [place] [address] Care Team Providers Care Advanced Manufacturing Engineer Name Role Phone JINNY HEAD NP Primary Care Physician Encounter [facility]BR [id number] Date(s): 10/26/22 - 10/26/22 [facility] [address] [place] [phone] [place] Encounter Diagnosis Hepatitis C(Discharge Diagnosis) - 10/26/22 Discharge Disposition: Home or Self Care Attending Physician: Rosy Winston APRN Referring Physician: JINNY HEAD NP Allergies, Adverse Reactions, Alerts No Known Medication Allergies Assessment and Plan Future Scheduled Tests Laboratory* CBC w/ Diff 10/26/22 * Hepatitis B Surface Antigen 10/26/22 * Hepatitis B Surface Antibody 10/26/22 * HIV Ag/Ab Combo 1/2 10/26/22 Functional Status 10/26/22 Other exposure to Infectious Disease Non e Medications buprenorphine-naloxone 8 mg-2 mg sublingual tablet [...] Related Diagnosis Body Site Status Cholecystectomy Completed Vital Signs Most recent to oldest [Reference Range]: 1 Temperature Temporal Artery [36-38 Deg C ] 36.6 Deg C (10/26/22 1:01 PM) Apical Heart Rate [60-100 bpm] 84 bpm (10/26/22 1:01 PM) Blood Pressure [90-140/60-90 mmHg] 128/7 8mmHg (10/26/22 1:01 PM) Weight 72.57 kg (10/26/22 1:01 PM) Weight Measured (lbs) 159.989 lb (10/26/22 1:01 PM) [place] Body Weight Calculated 68.4 kg (10/26/22 1:01 PM) Height 172.72 cm (10/26/22 1:01 PM) Height/Length Measured (inches) 68 inch (10/26/22 1:01 PM) BSA Measured 1.87 m2 (10/26/22 1:01 PM) Body Mass Index 24.33 kg/m2 (10/26/22 1:01 PM) Social History Social History Type Response Tobacco Current everyday tob acco user Tobacco Use:. Sex Physician Outpatient Note * Rosy Winston APRN: PERFORM Event Display: Office Clinic Note Physician Authored Date: [id number] KATHY ROWELL :1975 Age:46 years Sex:Male Visit Date:10/26/2022 Primary Care Physician: JINNY HEAD NP A Chief Complaint Hepatitis C History of Present Illness Patient is a 40-year-old??male here today at the request of??Jinny Head, BINDERY MACHINE OPERATOR??for hepatitis C. ??This is an initial consult.?? He??states he found out he had hepatitis C2 months ago.?? He states 2years ago he stopped using IV drugs. ??He denies any recreational drugs at this time.?? He denies alcohol use.?? He denies any known liver disease. ??He is treatment na??ve. ?? Denies any jaundice, abdominal pain, nausea, vomiting,??constipation, diarrhea, melena or hematochezia. ??Weight and appetite are stable. ??Denies pyrosis, dyspepsia,??dysphagia or globus sensation. ?? CT scan of the abdomen and pelvis with contrast done in??December 2021 showed moderate gastric??distentions. ?? Denies any known family history of gastrointestinal cancers,??or liver disease. Review of Systems Pertinent positives and negatives are discussed in HPI. Physical Exam Vitals & Measurements T:??36.6?C ??(Temporal Artery)?? HR:??84??(Apical)?? BP:??128/78?? SpO2:??96%?? HT:??172.72??cm?? WT:??72.57??kg?? BMI:??24.33?? BSA:??1.87?? General: Well-nourished well-developed??male??in no acute distress. HEENT: Head is normocephalic, trachea midline and no cervical lymphadenopathy. ??Sclera are clear. Respiratory: Respirations are even and unlabored. ??Lungs are clear to auscultation. Cardiovascular: Regular rate and rhythm with S1 and S2. Abdomen: Positive bowel sounds x4 quadrants, no masses, no guarding, no tenderness. ??No hepatosplenomegaly. ??Abdomen is soft. Skin: Warm, dry, and pink. ??No spider angiomata, palmar erythema or gynecomastia. Neurological: Alert and oriented x3, speech is clear and gait is steady. Psychological: Pleasant, calm and cooperative. Assessment/Plan 1.??Hepatitis C??B19.20 Further testing ordered to assess??for Hepatitis C viral load, genotype, signs of cirrhosis, presence of hepatitis B or HIV, and to assess for immunity to hepatitis??A and B. ?? If signs of cirrhosis seen will recommend patient undergo EGD and/or Fibroscan. If not immune to Hepatitis A or B will recommend vaccination accordingly. Discussed effectiveness of antiviral treatment being 96-98% and possible side effects to expect. Discussed compliance with treatment and avoiding further exposure to Hepatitis C through unsafe tattoos, piercings, and IV drug use. Patient is committed to avoid further exposure. Discussed prior authorization process and that medication gets mailed through a speciality pharmacyand not their local pharmacy. Will check HCV viral load 12 weeks after completion of last dose to assess for cure. All questions were answered. I will see patient 1 month after he starts treatment. Ordered: CBC w/ Diff, Blood, Routine, 10/26/22, Once, Lab Collect, Hepatitis C, Order for future visit CBC w/ Diff, Blood, Routine, 10/26/22, Once, Lab Collect, Hepatitis C, Order for future visit Comprehensive Metabolic Panel, Blood, Routine, 10/26/22, Once, Lab Collect, Hepatitis C, Order for future visit HCV RNA by PCR, Qn Rfx Yadira LC, Blood, Routine, 10/26/22, Once, Lab Collect, Hepatitis C, Order forfuture visit Hep A Ab, Total LC, Blood, Routine, 10/26/22, Once, Lab Collect, Hepatitis C, Order for future visit Hep B Core Ab, Tot LC, Blood, Routine, 10/26/22, Once, Lab Collect, Hepatitis C, Order for future visit Hepatitis B Surface Antibody, Blood, Routine, 10/26/22, Once, Lab Collect, Hepatitis C, Order for future visit Hepatitis B Surface Antigen, Blood, Routine, 10/26/22, Once, Lab Collect, Hepatitis C, Order for future visit HIV Ag/Ab Combo 1/2, Blood, Routine, 10/26/22, Once, Lab Collect, Hepatitis C, Order for future visit ?? Voice recognition software utilized which may result in minor senior compensation consultant error. Future Orders CBC w/ Diff, Blood, Routine, 10/26/22, Once, Lab Collect, Hepatitis C, Order for future visit CBC w/ Diff, Blood, Routine, 10/26/22, Once, Lab Collect, Hepatitis C, Order for future visit Comprehensive Metabolic Panel, Blood, Routine, 10/26/22, Once, Lab Collect, Hepatitis C, Order for future visit HCV RNA by PCR, Qn Rfx Yadira LC, Blood, Routine, 10/26/22, Once, Lab Collect, Hepatitis C, Order forfuture visit Hep A Ab, Total LC, Blood, Routine, 10/26/22, Once, Lab Collect, Hepatitis C, Order for future visit Hep B Core Ab, Tot LC, Blood, Routine, 10/26/22, Once, Lab Collect, Hepatitis C, Order for future visit Hepatitis B Surface Antibody, Blood, Routine, 10/26/22, Once, Lab Collect, Hepatitis C, Order for future visit Hepatitis B Surface Antigen, Blood, Routine, 10/26/22, Once, Lab Collect, Hepatitis C, Order for future visit HIV Ag/Ab Combo 1/2, Blood, Routine, 10/26/22, Once, Lab Collect, Hepatitis C, Order for future visit Problem List/Past Medical History Ongoing Bipolar 1 disorder COPD - Chronic obstructive pulmonary disease Dysuria Elevated liver enzymes level Hepatitis C Hyperlipidemia Hypertension Ingrown toenail Low back pain Shoulder pain Tobacco use Historical No qualifying data Procedure/Surgical History ???Cholecystectomy Medications buprenorphine-naloxone 8 mg-2 mg sublingual tablet, 2 tab, SL, Daily carisoprodol 350 mg oral tablet, 350 mg= 1 tab, Oral, TID Depakote ER 500 mg oral tablet, extended release, 500 mg= 1 tab, Oral, Daily gabapentin 400 mg oral capsule, 400 mg= 1 cap, Oral, TID gabapentin 600 mg oral tablet, 600 mg= 1 tab, Oral, TID lidocaine 5% topical film, 1 patches, Topical, Daily LORazepam 0.5 mg oral tablet, 0.5 mg= 1 tab, Oral, BID Sublocade 300 mg/1.5 mL subcutaneous solution, extended release Ventolin HFA 90 mcg/inh inhalation aerosol, 2 puffs, Inhale, Once, PRN Allergies No Known Medication Allergies Social History Alcohol Past Electronic Cigarette/Vaping Electronic Cigarette Use: Never. Substance Use Current, Marijuana Tobacco Current everyday tobacco user Tobacco Use:. Family History Family history is negative Electronically Signed on 10/26/22 01:24 PM Rosy Winston APRN Patient Care team information Care Team Personnel Name: JINNY HEAD NP Position: No Access Member Role: Primary Care Physician Address: Address: [address] [place] [phone]
--- NOTE | 2022-12-19 14:10 | W.ED.GENAD ---
Discharge Plan Disposition Patient Disposition: Home Discharge Details Clinical Impression: Carpal tunnel syndrome, Bilateral hand pain Primary Care Provider: Jinny Hogan ED Provider: Ravinder Rodriguez Home Meds and New Rx's Prescriptions: New meloxicam 15 mg tablet 15 mg PO DAILY Qty: 30 0RF Rx Instructions: take with food. do not take with other NSAIDs Continued gabapentin 600 mg tablet 600 mg PO BID Qty: 8 0RF Discontinued ibuprofen 800 mg tablet 800 mg PO TID PRN (Reason: pain) Qty: 200 5RF No Action lorazepam [Ativan] 0.5 mg tablet 0.5 mg PO BID Qty: 60 0RF escitalopram oxalate [Lexapro] 10 mg tablet 10 mg PO DAILY albuterol sulfate 90 mcg/actuation HFA aerosol inhaler 2 puff inhalation Q4H PRN Discharge Instructions Instructions: Carpal Tunnel Surgery (DC) Additional Instructions: wear wrist braces on both hands, especially at night. start medication prescribed. continue gabapentin. follow up with PCP for additional evaluation Stand Alone Forms: Work Release Discharge Data Discharge Date/Time-TO BE ENTERED AT DEPARTURE: 12/19/22 14:25 Medical Decision Making Evaluation of bilateral hand and wrist pain. Initial differential includes arthritis, carpal tunnel, neuropathy. Patient has a benign and reassuring examination. He has no neurologic deficits concerning for central process. recommend continued bracing, getting a 2nd brace, and starting NSAID therapy. recommend re-evaluation by PCP in a few weeks. HPI General Date/Time Provider Initiated Documentation: 12/19/22 13:38. Limitations to Documentation: no limitations. Information obtained by: patient. HPI Narrative: 47-year-old gentleman with past medical history of bipolar disorder, COPD, hep C, hypertension presents for evaluation of bilateral wrist and hand pain. Reports that this has been ongoing for years. He states that he has been working with his hands his entire life. He states that the pain is worse in the morning time. He reports that he does wear a brace that he got at [facility] and that it does seem to help. He alternates which side he wears it on because he only has one brace. he describes that it feels like his hands are on fire. He denies any weakness or inability to do his job, just that he has significant pain. Pain starts in the wrist and extends through the hand. He denies any trauma, he has not tried any medication for this. He has not been seen despite having symptoms for the last several years. Related Data Home Medications Medication Instructions Recorded Confirmed albuterol sulfate 90 mcg/actuation 2 puff inhalation Q4H PRN 05/31/22 12/19/22 aerosol inhaler lorazepam 0.5 mg tablet (Ativan) 0.5 mg PO BID #60 tabs 06/13/22 12/19/22 gabapentin 600 mg tablet 600 mg PO BID #8 tabs 07/14/22 12/19/22 escitalopram oxalate 10 mg tablet 10 mg PO DAILY 12/19/22 12/19/22 (Lexapro) meloxicam 15 mg tablet 15 mg PO DAILY #30 tabs 12/19/22 Previous Rx's Medication Instructions Recorded lorazepam 0.5 mg tablet (Ativan) 0.5 mg PO BID #60 tabs 06/13/22 gabapentin 600 mg tablet 600 mg PO BID #8 tabs 07/14/22 meloxicam 15 mg tablet 15 mg PO DAILY #30 tabs 12/19/22 Allergies Allergy/AdvReac Type Severity Reaction Status Date / Time No Known Allergies Allergy Verified 12/19/22 13:44 General Stated Complaint: Orthopedic JENNIFER: 4 PFSH All Active Problems No-show for appointment (Acute) Tendonitis of long head of biceps brachii of right shoulder (Acute) Bursitis of right shoulder (Acute) Bipolar I disorder (Acute) Mixed hyperlipidemia (Acute) COPD (chronic obstructive pulmonary disease) (Chronic) Viral hepatitis C (Chronic) HTN (hypertension) (Chronic) Sprain of right acromioclavicular joint (Acute ~12/2021) Medical History Elevated liver enzymes Intervertebral disc disorder with radiculopathy of lumbar region Bipolar affective disorder Surgical History History of cholecystectomy (~2012) No significant past surgical history Social History Smoking/Tobacco Use Status: Current every day Tobacco Type: cigarettes Quit status: considering quitting Second Hand Exposure: No Smoking risk assessment performed?: Yes Alcohol Intake: current Alcohol Intake frequency: a few times a month Counseling given: No Drug use: Occasionally Substance use type: marijuana Counseling given: No Adopted: No Caregiver/Support person: No Foster care: No Household members: significant other Housing: house Number of Children: 1 Communication Needs: None Do you need help understanding health information?: Never 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 [employer] Pets and animals: Yes Pets and animals: dog(s) Do you think of yourself as: straight/heterosexual Current gender identity: male What is your relationship status?: How often do you talk on the phone with friends or family?: twice per week How often do you get together with friends or relatives?: once per week Do you belong to any clubs or organized social groups?: no Panel score (0-1 are the most socially isolated patients): 1 NHANES result reviewed/action taken: No What type of physical activity do you participate in: none Seatbelt use: always Helmet use: Yes Drive intox or ride w/intox line haul driver: No Working smoke detector in home: Yes Fire extinguisher in home: Yes Carbon monox detector in home: Yes Do you feel safe at home: Yes Do you feel safe in your relationship?: Yes Exam Narrative Exam Narrative: Review of Systems: All systems reviewed & are unremarkable except as noted in HPI and below Well-developed, no acute distress NACT PERRL, normal conjunctiva RRR Unlabored respiratory effort Nondistended abdomen Extremities w/o deformity, no cyanosis, no edema Bilateral wrists without swelling or effusion or redness. Full strength and range of motion, normal sensation throughout all distributions of the hand No rashes or lesions. no focal neurologic deficits Appropriate mood and affect Course Vital Signs Vital signs: Vital Signs Temperature 36.6 C 12/19/22 13:39 Pulse 58 L 12/19/22 13:39 Respiratory Rate 16 12/19/22 13:39 Blood Pressure 130/65 12/19/22 13:39 Pulse Oximetry 100 12/19/22 13:39 Temperature 36.6 C 12/19/22 13:39 Temperature Source Tympanic 12/19/22 13:39 Pulse 58 L 12/19/22 13:39 Respiratory Rate 16 12/19/22 13:39 Respiratory Effort Normal 12/19/22 13:42 Blood Pressure 130/65 12/19/22 13:39 Pulse Oximetry 100 12/19/22 13:39 Oxygen Delivery Method Room Air 12/19/22 13:39 Oxygen Flow Rate 0 12/19/22 13:39 Pain Level 6 12/19/22 13:39
[2022-12-19] MEDS: Meloxicam 15 MG TAB PO (14:20)
== END 2022-12-19 14:25 | disposition home or self-care (01) ==
PROVIDERS: Emergency Provider Emergency Medicine; PCP Nurse Practitioner
DX: G56.03 Carpal tunnel syndrome, bilateral upper limbs (principal); M79.642 Pain in left hand; M79.641 Pain in right hand; J44.9 Chronic obstructive pulmonary disease, unspecified; B19.20 Unspecified viral hepatitis C without hepatic coma; I10 Essential (primary) hypertension; E78.5 Hyperlipidemia, unspecified; F17.210 Nicotine dependence, cigarettes, uncomplicated
CPT/HCPCS: 99282

== ENCOUNTER 2023-03-16 06:03 | Day surgery (SDC) | payer MEDICAID, SELFPAY ==
--- NOTE | 2023-03-15 10:38 | COLE_ITS ---
Date of service: 03/16/23 Time of Service: 08:10 Colonoscopy Report Date of procedure: 03/16/23 Pre-op diagnosis general: rectal bleeding/wt loss Post-op diagnosis procedure note: other (Grade II hemorroids) Surgeon: Matilde Watson Anesthesia Type: General:No Airway Estimated blood loss (mL): 0 Pathology: none sent Complications: None Disposition: same day Prep: Miralax/Dulcolax Retraction Time: 10 Procedure Description: After informed consent was obtained the patient was taken to the procedure room and placed in a left decubitous position. Monitors were applied and a time out was done. The patients name, date of , procedure, allergies to medications and metal in their body was reviewed. The patient was then sedated. Once sedated and comfortable a rectal exam was done. External exam was normal. Internal exam revealed a normal sphincter tone and no palpable masses. The prostate - no palpable masses . The scope was then introduced and retrofelexed. Grade II internal hemorrhoidsx 3 columns were identified. The scope was then advanced to the cecum w/out difficulty. The TI and appendiceal orifice were identified. The prep was BBPS I in all segments for a total of 3. Lesions less than .5cm may have been missed. . The scope was then slowly retracted over 10 minutes back into the rectum. There are no polyps/AVMs/diverticula visualized today. The mucosa is pink and healthy with a normal vascular pattern the scope was removed and the patient was woken up and taken back to Same day surgery in stable condition. The patient tolerated the procedure well and there were no immediate complic ations. Follow up: The patient should follow up in 5years, due to poor prep, unless they develop changes in bowel habits or other new gastrointestinal complaints.
--- NOTE | 2023-03-15 10:39 | PDOC.DSDIS_ITS ---
Date of service: 03/16/23 Time of Service: 08:18 Discharge Plan Disposition Patient Disposition: Home Condition: Good Discharge Details Reason For Visit: colon scope Attending Provider: Matilde Watson Primary Care Provider: Jinny Hogan Home Meds and New Rx's Prescriptions: Continued lorazepam [Ativan] 0.5 mg tablet 0.5 mg PO BID Qty: 60 0RF buprenorphine-naloxone 8-2 mg tablet, sublingual 1 tab sublingual DAILY dextroamphetamine-amphetamine [Adderall] 20 mg tablet 20 mg PO BID Rx Instructions: administer doses at least 4-6 hours apart divalproex [Depakote ER] 500 mg tablet extended release 24 hr 500 mg PO DAILY escitalopram oxalate [Lexapro] 10 mg tablet 10 mg PO DAILY gabapentin 600 mg tablet 600 mg PO TID PRN (Reason: pain or tingling) Qty: 270 0RF omeprazole 40 mg capsule,delayed release(DR/EC) 40 mg PO DAILY albuterol sulfate 90 mcg/actuation HFA aerosol inhaler See Rx Instructions .ROUTE .COMPLEX Qty: 8.5 3RF Dose Instruction: INHALE 2 PUFFS BY MOUTH EVERY 4 HOURS NEEDED FOR SHORTNESS OF BREATH OR WHEEZING Rx Instructions: INHALE 2 PUFFS BY MOUTH EVERY 4 HOURS NEEDED FOR SHORTNESS OF BREATH OR WHEEZING meloxicam 15 mg tablet 15 mg PO DAILY Qty: 30 0RF Rx Instructions: take with food. do not take with other NSAIDs Discontinued bisacodyl [Dulcolax (bisacodyl)] 5 mg tablet,delayed release (DR/EC) 5 mg PO ONCE Qty: 4 0RF Rx Instructions: Colonoscopy Bowel Prep- Per Instructions polyethylene glycol 3350 17 gram/dose powder 238 g PO ONCE Qty: 238 0RF Rx Instructions: Colonoscopy Bowel Prep- Per Instructions Discharge Instructions Additional Instructions: DSU Colonoscopy Post- Op Instructions Instructions for Everyone who is given Anesthesia: For your safety, please do the following for the next twenty-four (24) hours: *Do Not operate a motor vehicle (car, truck, motorcycle, etc.) *Do Not drink alcoholic beverages or use any recreational drugs for the first 24 hours or while taking pain medications. The medications in your body may have a reaction that can be dangerous. *Do Not make any important decisions or sign any important papers. Findings: Grade II internal hemorrhoids Follow up: Repeat in 5 yrs due to poor prep 1. No lifting over 20 pounds or strenuous activity for the first 24 hours after your procedure. After 24 hours there are no restrictions on your activity but you may feel fatigued for a few days. 2. After you arrive home you may have a light meal and return to your normal diet as you can tolerate it without feeling sick to your stomach. 3. You may have a bloated, gaseous feeling in your belly (abdomen) after a colonoscopy. Passing gas and belching will help. Walking or lying down on your left side with your knees flexed may relieve the discomfort. Call the office at [phone] (Office) or [phone] (Hospital) right away if you notice any of the following: a.Vomiting of blood or ?coffee ground stools?. b.Rectal bleeding 1Tbsp, blood clots or continuous bleeding. c.Severe belly (abdominal) pain. d.A hard distended belly (abdomen) and an inability to pass gas. 4. Please don?t expect to have a normal BM (bowel movement) for 2-3 days after your procedure. 5. If there are questions regarding the findings of your procedure, please c ontact your doctor 6. If you are unable to contact your doctor with a problem, contact the hospital at [phone]. 7. Continue all your regular medications unless directed otherwise. I understand the above instructions and have no questions. Signature of Patient or Adult Escort Name of Responsible Adult Escort Signature of Nurse Date/Time Starting a Fiber Supplement Dietary fiber is a plant-based nutrient that's necessary for the healthy functioning of your digestive system.? ?In addition to helping your bowels stay regular, it's also useful for maintaining optimum cholesterol and blood sugar levels as well as a healthy weight. Although it's technically a carbohydrate, it's not the kind that can be broken down into digestible sugars by the body. Instead, fiber travels through your digestive system while bulking and softening your stool?making it easier to pass. It also helps absorb excess blood sugars and cholesterols. The [place] [employer] recommends 30 grams (g) of fiber a day for men, and 25g a day for women. Fiber is found in fruits, vegetables, legumes, and whole grains, and is an important part of the diet. But because many people find it difficult to eat the recommended quantity of 25 to 38 g per day, fiber supplementation can be extremely helpful to ease the symptoms of a variety of digestive discomforts like diarrhea and constipation. Today, many fiber supplements are found on the market containing one of three active ingredients: psyllium, methylcellulose, and polycarbophil Health Benefits If you have diarrhea, supplementing with fiber can bulk up the stool and reduce frequent urges to evacuate the bowel. If you have constipation, fiber supplements can soften your stool and speed up its movement through the colon. To understand how fiber helps relieve symptoms of both diarrhea and constipation, it's important to differentiate between soluble fiber and insoluble fiber. Soluble fiber forms a gel in your colon by absorbing water and retaining it in your stool, which makes bowel movements softer and easier to pass. Insoluble fiber bulks stool up, which also helps it move through your intestines more easily. Thus, fiber can also help you avoid hemorrhoids https://www.Turbulenz.Hospit[employer] Leaders/ufpliwpltgn-brvknoix-7779448 and anal fissures https://www.Turbulenz.Hospit[employer] Leaders/dgax-nkz-tawl-fissures-0084463 that can develop when straining to pass a bowel movement. Additionally, supplementing with fiber can be part of a treatment plan for conditions such as irritable bowel syndrome https://www.BlooBox/lbqdkwfiq-wtevr-muzwcrka-overview-5126384 (IBS), various types of inflammatory bowel disease https://www.BlooBox/kia-wgrnct-bkffmuc-overview-7650307 (IBD) like Crohn's disease and ulcerative colitis, as well as diverticulosis https://www.BlooBox/fbbdpksrsupt-mgwqmsl-1559016 . Fiber increases satiety, or fullness, and is thus helpful for those looking to lose weight or maintain a healthy weight. Sufficient fiber intake has also been shown to decrease the risk of certain cancers,? heart disease,? and diabetes. There is also evidence that enough fiber, when combined with a diet rich in Vitamin A, has a protective effect against food allergies. Possible Side Effects The potential side effects of fiber supplementation include: * Gas https://www.BlooBox/bgvglapk-ohm-qvi-9854652 and gas pain * Abdominal bloating * Lowered blood sugar https://www.BlooBox/qsvvgryclnn-ddkmy-clysfmu-afvqqj-kcb-inccnrib-1 414310 * Diarrhea or constipation (if taken in excess) * Weight loss * Lessened effectiveness of medications and vitamins (if taken at the same time as fiber) -Side effects can sometimes be minimized by starting with a small amount and slowly increasing until stools become softer and more frequent. Because of the way fiber supplements bulk up in the intestinal tract and absorb surrounding materials, they can interfere with the body's ability to assimilate medications, vitamins, and nutrients. For that reason, it's important to consume fiber supplements at least one hour after, or two hours before, taking medications and important vitamins. This can sometimes be minimized by starting with a small amount and slowly increasing until stools become softer and more frequent. Dosage and Preparation Fiber supplements often come in the form of powders meant to be mixed with water or another liquid. They also are available in capsule form, or as additives to foods like crackers, cookies, cereals, and bars. Dosage will vary based on the product and your desired effects. If you are healthy, it's generally recommended to start with a low dose of fiber and build up until you've reached optimum total daily fiber intake?roughly 25g for women and 38g for men?which should also include your dietary sources of fiber What to Look For When shopping for fiber, look closely at the ingredients to discover which form of fiber is used in each commercial brand. Also, if you're avoiding added sugar, salt, flavorings, or dyes, check the label for these common additives. If you're just starting with a fiber supplement, use a low dose and drink plenty of water when you take the supplement and throughout the day.? If you are not used to eating a high fiber diet/taking a supplement, start with about half of the recommended dose.? Always remember to take fiber with 8oz of water.? Continue at this dose for about 2-3 weeks, and then slowly increase up to the full dose daily.? Fiber is a natural product- you can increase the dose to 2-4 times a day as needed to have a formed BM without straining. Increase the dose slowly until you reach either the desired total intake or a specific effect. Psyllium Psyllium https://www.BlooBox/gth-fnjoaazj-ic-psyllium-47947 is made from the seeds of a plant in the Plantago genus and contains about 70% soluble fiber and 30% insoluble fiber. It helps the stool absorb water and bulks it up, making?it easier to pass. It also breaks down in the gut (a process called fermentation) and becomes a food source for the good bacteria that reside ther e. Psyllium is used for treating constipation, irritable bowel syndrome (IBS), and diverticulosis. In addition, psyllium may lower cholesterol ?levels and provide some protection from heart disease.? On the downside, psyllium may cause intestinal gas and contains a small number of calories (roughly 20 calories per tablespoon). Psyllium is sold under the brand names Metamucil, Fiberall, Hydrocil, Konsyl, Perdiem, and Serutan. Methylcellulose Methylcellulose is a non-allergenic and non-fermentable fiber created from the cell mcdonald of plants. Instead of being absorbed by the intestinal tract, methylcellulose pulls in water to create a softer stool. Methylcellulose is often used to treat constipation, diverticulosis, IBS, and some causes of diarrhea. Because it does not ferment, it is less likely than psyllium to cause intestinal gas; however, methylcellulose does not feed healthy gut bacteria the way psyllium does. It can be used terminal operations supervisor but it should be noted that, because it can interfere with absorption, methylcellulose should be taken apart from any prescribed medications. Methylcellulose is sold under the brand name Citrucel. What are the best dietary sources of fiber? Whether or not you choose to supplement with fiber, it's still important to include a variety of high-fiber foods in your diet, such as: * Fresh fruit (pears, apples, strawberries, bananas) * Fresh vegetables (broccoli, Brussel sprouts, beets, and carrots) * Legumes (lentils, split peas, kidney beans, chickpeas, black beans, watkins beans) * Whole Grains (quinoa, oats, brown rice, millet, barley) * Other food sources of fiber (popcorn, sweet potatoes, and randell) What time of day is best? Different manufacturers may have varying recommendations on when and how frequently to take fiber supplements. You may want to divide your daily dose into two or three portions to reduce bloating and gas that could occur when taking a large dose all at once. To avoid malabsorption, it's important to take medications or vitamins either one hour before, or two hours after, taking fiber supplements. If using a powdered form of fiber, be sure to dissolve it well. No matter what kind of fiber supplement you are using, be sure to drink plenty of water, at least 8ox, unless you are on fluid restrictions. Activity:: see above Diet:: see cyndi Discharge Orders Discharge Orders: Discharge Order (Routine); Ordered 03/16/23 Ordered By: Matilde Watson DS: Diagnosis Discharge Diagnosis (1) Screening for malignant neoplasm of colon performed: Status: Acute Asessment and Plan: The patient is seen and examined after their colonoscopy.? The patient has been able to pass gas.? They are not having abdominal pain.? They have been able to tolerate liquids and a snack.? They do not have any nausea or vomiting.? They a re not having any chest pain or shortness of breath.??? They are not having any rectal bleeding. Their vital signs have been stable-see nursing notes. We discussed findings during their colonoscopy, and any biopsies that were done/polyps that were removed. The patient will be sent a letter with any biopsy results, and when to repeat the colonoscopy.-see discharge instructions. Patient was given explicit instructions to follow-up regarding colonoscopy-refer to discharge instructions.? We reviewed resumption of medications. Patient verbalized understanding and discharged in stable and satisfactory condition- See nursing notes. (2) Bipolar I disorder: Status: Acute (3) Mixed hyperlipidemia: Status: Acute (4) COPD (chronic obstructive pulmonary disease): Status: Chronic (5) Viral hepatitis C: Status: Chronic (6) HTN (hypertension): Status: Chronic (7) Elevated liver enzymes: (8) Grade II internal hemorrhoids: Status: Acute
[2023-03-16 06:28] VITALS: BP 130/75; PULSE 72; RESP 16; TEMP 37; O2SAT 100
[2023-03-16] MEDS: Lactated Ringers 1,000 ML 80 ML IV (06:31)
--- NOTE | 2023-03-16 07:18 | W.ANESPRE ---
General Info Date of Service Date Performed: 03/16/23 Height: 5 ft 8 in Weight: 66.7 kg Body Mass Index (BMI): 22.4 Surgical Procedure: Operation Date: 03/16/23 07:35 Proposed Procedure Side Surgeon lyssa Watson, DO Meds Allergies and Home Medications Allergies Allergy/AdvReac Type Severity Reaction Status Date / Time No Known Allergies Allergy Verified 03/16/23 06:16 Home Medication Medication Instructions Recorded lorazepam 0.5 mg tablet (Ativan) 0.5 mg PO BID #60 tabs 06/13/22 escitalopram oxalate 10 mg tablet 10 mg PO DAILY 12/19/22 (Lexapro) meloxicam 15 mg tablet 15 mg PO DAILY #30 tabs 12/19/22 gabapentin 600 mg tablet 600 mg PO TID PRN pain or tingling 01/04/23 #270 tabs omeprazole 40 mg capsule,delayed 40 mg PO DAILY 02/05/23 release albuterol sulfate 90 mcg/actuation See Rx Instructions .Route 02/13/23 aerosol inhaler .COMPLEX #8.5 grams buprenorphine 8 mg-naloxone 2 mg 1 tab sublingual DAILY 02/27/23 sublingual tablet dextroamphetamine-amphetamine 20 20 mg PO BID 02/27/23 mg tablet (Adderall) divalproex 500 mg tablet,extended 500 mg PO DAILY 02/27/23 release 24 hr (Depakote ER) Current Visit Medications: Current Medications Generic Name Dose Route Start Last Admin Trade Name Freq PRN Reason Stop Dose Admin Hyoscyamine Sulfate 0.125 mg 03/16/23 03:37 Hyoscyamine 0.125 Mg Sl/Oral/Chew SL 04/15/23 03:36 DIRECTED PRN Ringer's Solution 1,000 mls @ 80 mls/hr 03/16/23 06:00 03/16/23 06:31 IV 03/16/23 23:59 80 mls/hr INFUSION BRENTON Administration IV Miscellaneous Supplies 1 each 03/16/23 06:00 Iv Access IV 03/16/23 23:59 DIRECTED BRENTON Ondansetron HCl 4 mg 03/16/23 03:37 Ondansetron 4 Mg/2 Ml Vial IVP 04/15/23 03:36 Q4H PRN PRN Nausea / Vomiting Sodium Chloride 0 ml 03/16/23 06:00 Normal Saline Flush 10 Ml Syr IV 03/16/23 23:59 PRN PRN Sodium Chloride 0 ml 03/16/23 06:00 Normal Saline 10 Ml Vial IJ 03/16/23 23:59 DIRECTED PRN Sterile Water 0 ml 03/16/23 06:00 Water,Injection,Sterile 10 Ml Vial IJ 03/16/23 23:59 DIRECTED PRN PFSH Active Problems Active Problems: Problem Status Onset Code Screening for malignant neoplasm of colon performed Z12.11 Carpal tunnel syndrome G56.00 No-show for appointment Z91.199 Tendonitis of long head of biceps brachii of right shoulder M75.21 Bursitis of right shoulder M75.51 Bipolar I disorder F31.9 Mixed hyperlipidemia E78.2 COPD (chronic obstructive pulmonary disease) J44.9 Viral hepatitis C B19.20 HTN (hypertension) I10 Sprain of right acromioclavicular joint ~12/2021 S43.51XA Medical History Medical History Elevated liver enzymes Intervertebral disc disorder with radiculopathy of lumbar region Bipolar affective disorder Surgical History Surgical History History of cholecystectomy (~2012) No significant past surgical history Tobacco Smoking/Tobacco Use Status: Current every day Tobacco Type: cigarettes Second hand exposure: No Alcohol Alcohol Intake: former Substance Use Substance use: Occasionally Substance use type: former substance user and marijuana Details: Last dose of MJ was this AM Vital Signs and Lab Results Vital Signs Most Recent Vital Signs in EMR: Most Recent Vital Signs Temp Pulse Resp BP Pulse Ox 37.0 C 72 16 130/75 100 03/16/23 06:28 03/16/23 06:28 03/16/23 06:28 03/16/23 06:28 03/16/23 06:28 Lab Results Blood Type / Crossmatch: No Data to Display Complete Blood Count: No Data to Display Complete Metabolic Panel: No Data to Display Liver Function Panel: No Data to Display Coagulation Panel: No Data to Display Cardiac Panel: No Data to Display Arterial Blood Gas: No Data to Display Venous Blood Gas: No Data to Display Pancreas Panel: No Data to Display Thyroid Panel: No Data to Display Infectious Disease: No Data to Display Blood Cultures: No Data to Display Toxicology Panel: No Data to Display Anesthesia Assessment and Plan Anesthesia History Personal History: No History of Anesthesia Complications Family History: No Family History of Anesthesia Complications Exercise Tolerance Exercise Tolerance: Metabolic Equivalents>4 Pertinent Negatives Pertinent Negatives: No Symptoms of GERD Cardiac & Pulmonary Exam Cardiac Exam: Normal S1/S2 Heart Sounds Pulmonary Exam: Clear Bilateral Breath Sounds Implantable Cardiac Device Does patient have a Pacemaker or an ICD?: No Airway Exam Known Difficult Airway: No Mallampati Class: 2 Mouth Opening: Normal (> 3cm) Thyromental Distance: Greater than 3 cm Neck Range of Motion: Full ROM Neck Circumference: Normal Teeth Condition: Normal Dentition ASA Classification ASA Score: ASA 2 Emergency Case?: No NPO Status NPO Status: NPO Clears >2 hours, Solids >8 hours Anesthesia Plan Resuscitation Status: Full Code Anesthesia Technique: General Anesthesia Airway Planned: Natural Airway Monitors Used: Standard Monitors
[2023-03-16 07:20] VITALS: BMI 22.4
[2023-03-16 08:05] VITALS: BP 99/52; PULSE 60; RESP 18; TEMP 36.6; O2SAT 97
--- NOTE | 2023-03-16 08:16 | W.ANESPOSTOP ---
Postoperative Evaluation Date, Time and Location Date Performed: 03/16/23 Time Performed: 08:17 Patient Location: Day Surgery Unit Vital Signs Most Recent Imported Vital Signs: Most Recent Vital Signs Temp Pulse Resp BP Pulse Ox 36.6 C 60 18 99/52 L 97 03/16/23 08:05 03/16/23 08:05 03/16/23 08:05 03/16/23 08:05 03/16/23 08:05 Pain Score Most Recent Pain Score: Most Recent Pain Score Pain Level 0 03/16/23 08:05 Assessment Mental Status: Awake (Alert & Oriented to Patient Baseline) Airway and Respiratory Function: Patent airway with normal (patient baseline) respiratory exam Cardiovascular Function: Hemodynamically Stable Hydration Status: Adequately Hydrated Nausea & Vomiting: No Nausea or Vomiting Pain: Pt. Denies Any Pain Peripheral Nerve Block: Patient did not receive a nerve block
[2023-03-16 08:35] VITALS: BP 111/62; PULSE 66; RESP 20; TEMP 36.6; O2SAT 98
== END 2023-03-16 08:50 | disposition home or self-care (01) ==
LOC: SUR 06:03
PROVIDERS: PCP Nurse Practitioner; Visit Provider Surgery
PROC: 0DJD8ZZ Inspection of Lower Intestinal Tract, Via Natural or Artificial Opening Endoscopic (ICD-10-PCS; CPT 45378; principal; 2023-03-16 07:30)
DX: Z12.11 Encounter for screening for malignant neoplasm of colon (principal); K64.1 Second degree hemorrhoids; B19.20 Unspecified viral hepatitis C without hepatic coma; I10 Essential (primary) hypertension; J44.9 Chronic obstructive pulmonary disease, unspecified; F31.9 Bipolar disorder, unspecified
CPT/HCPCS: 45378; J2704

== ENCOUNTER 2023-12-02 12:31 | Emergency (ER) | payer MEDICAID, SELFPAY ==
[2023-12-02] VITALS (28 sets, daily range): BP systolic 107–169; BP diastolic 76–99; PULSE 65–113; RESP 6–30; TEMP 36.5; O2SAT 95–100
--- NOTE | 2023-12-02 12:30 | RT.EKG_ITS ---
APPROVED REPORT Exam: Resting ECG Reason for Exam: numbness Patient Location: E HR:93 bpm ECG Measurements Heart Rate 93 AXIS AZ 132 P 76 QRSd 94 QRS 66 QT 336 T 11 QTc 417 Conclusion Sinus rhythm...normal P axis, V-rate 60- 99 Right atrial enlargement...P>0.25mV 2 lds or<-0.24mV aVR/aVL Borderline ST depression, diffuse leads...ST <-0.07mV, ant/lat/inf
--- NOTE | 2023-12-02 13:30 | ED.GENADUL_ITS ---
Discharge Plan Disposition Patient Disposition: Home Condition: Stable Discharge Details Clinical Impression: Lumbar back pain Primary Care Provider: Jinny Hogan ED Provider: Reid Garcia Home Meds and New Rx's Prescriptions: New gabapentin 300 mg capsule 300 mg PO TID PRN (Reason: pain) Qty: 30 0RF Continued divalproex [Depakote ER] 500 mg tablet extended release 24 hr 500 mg PO DAILY escitalopram oxalate [Lexapro] 10 mg tablet 10 mg PO DAILY albuterol sulfate 90 mcg/actuation HFA aerosol inhaler See Rx Instructions .ROUTE .COMPLEX Qty: 8.5 3RF Dose Instruction: INHALE 2 PUFFS BY MOUTH EVERY 4 HOURS NEEDED FOR SHORTNESS OF BREATH OR WHEEZING Rx Instructions: INHALE 2 PUFFS BY MOUTH EVERY 4 HOURS NEEDED FOR SHORTNESS OF BREATH OR WHEEZING gabapentin 800 mg tablet 800 mg PO BID Patient Comments: TAKE 1 TABLET BY MOUTH TWICE DAILY Sublocade 100 mg/0.5 mL solution, extended rel syringe 100 mg subcut QMONTH Eliquis 5 mg tablet 2.5 mg PO BID Discharge Instructions Additional Instructions: You can take 1000 mg of acetaminophen and 600 mg of ibuprofen every 6 hours as needed Follow-up with your primary care provider within 1 to 2 weeks If you feel more ill or have new symptoms such as high fevers return to the emergency department for reevaluation HPI General Date/Time Provider Initiated Documentation: 12/02/23 13:01 . Limitations to Documentation: no limitations . Information obtained by: patient . History of Present Illness 48 year old M presents to the emergency department with the chief complaint of leg pain and burning sensation, described as moderate, Quality is described as burning and aching, and is localized to the left, right and lower extremity. Patient started experiencing this hour(s) (1) and it has been constant. No relieving factors improve symptom(s), No exacerbating factors reported . Patient notes no other symptoms.. Patient did receive the following treatments prior to arrival, none Related Data Home Medications ?Medication ?Instructions ?Recorded ?Confirmed escitalopram oxalate 10 mg tablet 10 mg PO DAILY 12/19/22 12/02/23 (Lexapro) albuterol sulfate 90 mcg/actuation See Rx Instructions .Route 02/13/23 12/02/23 aerosol inhaler .COMPLEX #8.5 grams divalproex 500 mg tablet,extended 500 mg PO DAILY 02/27/23 12/02/23 release 24 hr (Depakote ER) apixaban 5 mg tablet (Eliquis) 2.5 mg PO BID 12/02/23 12/02/23 buprenorphine 100 mg/0.5 mL 100 mg subcut QMONTH 12/02/23 12/02/23 solution,exten.rel.subcutaneous syringe (Sublocade) gabapentin 300 mg capsule 300 mg PO TID PRN pain #30 caps 12/02/23 gabapentin 800 mg tablet 800 mg PO BID 12/02/23 12/02/23 Previous Rx's ?Medication ?Instructions ?Recorded albuterol sulfate 90 mcg/actuation See Rx Instructions .Route 02/13/23 aerosol inhaler .COMPLEX #8.5 grams gabapentin 300 mg capsule 300 mg PO TID PRN pain #30 caps 12/02/23 Allergies Allergy/AdvReac Type Severity Reaction Status Date / Time No Known Allergies Allergy Verified 12/02/23 12:42 General Stated Complaint: Vascular JENNIFER: 3 Review of Systems All systems reviewed & are unremarkable except as noted in HPI and below Constitutional Constitutional: Denies chills, Denies fever(s) and Denies weakness ENT Ears, Nose, Mouth, and Throat: Denies change in voice Cardiovascular Cardiovascular: Denies chest pain and Denies dyspnea Respiratory Respiratory: Denies cough and Denies dyspnea Gastrointestinal Gastrointestinal: Denies abdominal pain, Denies nausea and Denies vomiting Neurologic Neurologic: Denies weakness Exam Const General: no acute distress Orientation: alert HENOR Head: normal to inspection Ears: external ears normal General nose exam: external nose normal Mouth: moist mucous membranes Eyes General: appearance normal, both eyes and all related structures Neck Neck: normal visual inspection Resp Effort & Inspection: normal respiratory effort and able to speak in complete sentences Cardio Rate: regular rate GI Palpation: soft and tender Back/Spine/Pelvis Back: no CVA tenderness Skin General skin exam: no rashes or lesions noted Neuro General: patient alert and patient oriented x3 Extrem General: normal to inspection, full ROM and capillary refill normal Psych Mental Status: mental status grossly normal Course Vital Signs Vital signs: Vital Signs Temperature 36.5 C 12/02/23 12:33 Pulse 113 H 12/02/23 12:33 Respiratory Rate 16 12/02/23 12:33 Blood Pressure 151/87 H 12/02/23 12:33 Pulse Oximetry 98 12/02/23 12:33 Temperature 36.5 C 12/02/23 12:33 Pulse 113 H 12/02/23 12:33 Respiratory Rate 16 12/02/23 12:33 Respiratory Effort Normal 12/02/23 12:39 Respiratory Depth Normal 12/02/23 12:39 Respiratory Pattern Normal 12/02/23 12:39 Blood Pressure 151/87 H 12/02/23 12:33 Blood Pressure Position Sitting 12/02/23 12:33 Pulse Oximetry 98 12/02/23 12:33 Oxygen Delivery Method Room Air 12/02/23 12:33 Oxygen Flow Rate 0 12/02/23 12:33 Pain Level 9 12/02/23 12:33 Medical Decision Making 48-year-old male with a history of COPD, hypertension bipolar, who comes in with 1 to 2 hours of feeling like his legs are on fire, and burning. He denies any falls or trauma, no IV drug use, no fevers or chills, no chest pain or difficulty breathing. He is alert and oriented x 4 on arrival and appears very anxious. He is moving all of his extremities well with good strength, he has no unilateral weakness. His legs are not swollen, there is no calf tenderness, he has intact pulses in his feet, there is no discoloration. Unclear etiology for his bilateral sensation of burning and sensation in his legs, will check a CBC and CMP and CPK to evaluate for possible electrolyte maladies and myositis, there is no findings on exam to suggest etiology such as DVT. I will provide a dose of Valium to help with possible muscle spasm and also his visible anxiety. He has no back pain so I doubt entities such as cauda equina and has no fevers or chills and denies IV drug use so doubt spinal epidural abscess. Given his pulses are intact, he has intact sensation and no discoloration of the legs do not feel acute arterial occlusion as a cause of his symptoms. Patient is requesting a x-ray of his lower back because he says he has chronic issues with his back, he has no saddle anesthesia no tenderness of the back and has no current back pain, discussed that there not indicated but he was persistent that he wanted lumbar x-rays so I ordered these for him. X-rays on my read show no acute findings, he is feeling better, labs unremarkable. Still stable exam with no saddle anesthesia intact sensation in the legs and intact distal pulses. Discussed with him and he is stable for discharge and he will follow-up with his PCP, return precautions given Differential Diagnosis Differential Diagnosis: Muscle spasm, neuropathy, electrolyte abnormality, myositis Medical Records Medical records reviewed: Yes I reviewed the patient's medical records. Lab Data Lab results reviewed: Yes I reviewed the patient's lab results. Quality:SDOH Health Related Social Needs: No Data to Display PFSH All Active Problems (Updated 12/02/23 @ 15:46 by Reid Garcia MD) Lumbar back pain (Acute) Grade II internal hemorrhoids (Acute) Screening for malignant neoplasm of colon performed (Acute) Carpal tunnel syndrome (Acute) No-show for appointment (Acute) Tendonitis of long head of biceps brachii of right shoulder (Acute) Bursitis of right shoulder (Acute) Bipolar I disorder (Acute) Mixed hyperlipidemia (Acute) COPD (chronic obstructive pulmonary disease) (Chronic) Viral hepatitis C (Chronic) HTN (hypertension) (Chronic) Sprain of right acromioclavicular joint (Acute ~12/2021) Medical History (Updated 12/02/23 @ 15:46 by Reid Garcia MD) Primary osteoarthritis, right shoulder (~08/2023) 09/24/23 Orthopedics R shoulder arthroscopy planned Elevated liver enzymes Intervertebral disc disorder with radiculopathy of lumbar region Bipolar affective disorder Surgical History (Updated 10/09/23 @ 17:36 by Odessa Hudson LPN) History of colonoscopy (~02/2023) History of cholecystectomy (~2012) No significant past surgical history Social History (Updated 02/27/23 @ 15:16 by GURVINDER Rojas) Smoking/Tobacco Use Status: Current every day Tobacco Type: cigarettes Quit status: considering quitting Second Hand Exposure: No Smoking risk assessment performed?: Yes Alcohol Intake: former Counseling given: No Drug use: Occasionally Substance use type: former substance user and marijuana Counseling given: No Details: Last dose of MJ was this AM Adopted: No Caregiver/Support person: No Foster care: No Household members: significant other Housing: house Number of Children: 1 Communication Needs: None Do you need help understanding health information?: Never 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 Pets and animals: Yes Pets and animals: dog(s) Do you think of yourself as: straight/heterosexual Current gender identity: male What is your relationship status?: How often do you talk on the phone with friends or family?: twice per week How often do you get together with friends or relatives?: once per week Do you belong to any clubs or organized social groups?: no Panel score (0-1 are the most socially isolated patients): 1 NHANES result reviewed/action taken: No What type of physical activity do you participate in: none Seatbelt use: always Helmet use: Yes Drive intox or ride w/intox truck driver helper: No Working smoke detector in home: Yes Fire extinguisher in home: Yes Carbon monox detector in home: Yes Do you feel safe at home: Yes Do you feel safe in your relationship?: Yes
[2023-12-02 13:42] LABS: Abs Immature Grans 0.02 10^3/uL (0.0-0.06); Absolute Eosinophil Count 0.12 10^3/uL (0.0-0.7); Absolute Lymphocyte Count 1.83 10^3/uL (1.2-3.4); Absolute Neutrophil Count 4.72 10^3/uL (1.2-6.7); Basophils % 1.4 %; Eosinophils % 1.6 %; HCT 40.3 % (40.0-50.0); HGB 13.6 g/dL (13.5-17.5); Immature Grans % 0.3 %; Lymphocytes % 25.1 %; MCHC 33.7 % (32.0-36.0); MCV 89 fL (80-95); MPV 9.8 fL (8.0-11.0); Monocytes % 6.9 %; Neutrophils % 64.7 %; Platelet Count 270 10^3/uL (130-400); RBC 4.53 10^6/uL (4.36-5.78); RDW 12.3 % (11.8-14.1); RDW-SD 40.2 fL; WBC 7.29 10^3/uL (4.4-10.8)
[2023-12-02 13:56] LABS: ALT 34 U/L (16-63); AST 33 U/L (15-37); Albumin 4.1 g/dL (3.4-5.0); Alkaline Phosphatase 81 U/L (46-116); BUN 12 mg/dL (7-18); Bilirubin, Total 0.39 mg/dL (0.2-1.0); CREATININE 0.9 mg/dL (0.70-1.30); Calcium 9.1 mg/dL (8.5-10.1); Chloride 103 mmol/L (98-107); Estimated GFR 105.35 (mL/min/1.73m2); Glucose 120 mg/dL (74-106); Magnesium 2.1 mg/dL (1.8-2.4); Potassium 3.5 mmol/L (3.5-5.1); Sodium 140 mmol/L (136-145); Total Protein 8.1 g/dL (6.4-8.2)
[2023-12-02] MEDS: diazePAM 10 MG/2 ML SYR 5 MG IVP (13:56)
[2023-12-02] MEDS: Ketorolac 15 MG/ML VIAL IVP (13:56)
--- NOTE | 2023-12-02 15:00 | DI.RAD_ITS ---
Exam(s) XR LUMBAR SPINE COMPLETE EXAM: XR LUMBAR SPINE COMPLETE CLINICAL HISTORY: lumbar back pain. TECHNIQUE: 2D digital imaging was performed. Five views. COMPARISON: No exams were available for comparison FINDINGS: Exam somewhat limited by large quantity of bowel gas. No abnormal bowel distension. BONES: No fracture or destructive lesion. Vertebral body heights are maintained. Mild facet hypert rophy identified . DISKS: Intervertebral disc spaces are maintained. Endplate osteophytes. ALIGNMENT: Lumbar spinal alignment is within normal limits. SOFT TISSUE: Normal. IMPRESSION: No acute abnormality. DATA REPOSITORY: RADIATION DOSE DELIVERED:
[2023-12-02] MEDS: Gabapentin 300 MG CAP PO (15:52)
--- NOTE | 2023-12-02 16:49 | DI.VRAD_ITS ---
PROCEDURE INFORMATION: Exam: XR Lumbosacral Spine Exam date and time: 12/02/2023 3:22 PM Age: 48 years old Clinical indication: Low back pain; Patient HX: Lumbar back pain TECHNIQUE: Imaging protocol: Radiologic exam of the lumbosacral spine. Views: 4 or 5 views. COMPARISON: CT LUMBAR SPINE RECONS 08/17/2022 12:29 AM FINDINGS: Bones/joints: Normal. No acute fracture. Normal alignment. Soft tissues: Unremarkable. IMPRESSION: No evidence for acute abnormality. Dictated and Authenticated by: Keisha Boone MD. Ordering:DELIA Mathews MD
== END 2023-12-02 16:11 | disposition home or self-care (01) ==
PROVIDERS: Emergency Provider Emergency Medicine; PCP Nurse Practitioner
DX: M79.604 Pain in right leg (principal); M79.605 Pain in left leg
CPT/HCPCS: 80053; 93005; 99283; 72110; 83735; 85025; 93010; J1885; J3360

== ENCOUNTER 2023-12-04 18:27 | Emergency (ER) | payer MEDICAID, SELFPAY ==
--- NOTE | 2023-12-04 18:30 | DI.RAD_ITS ---
Exam(s) XR LUMBAR SPINE AP, LAT EXAM: XR LUMBAR SPINE AP, LAT CLINICAL HISTORY: Fall. TECHNIQUE: 2D digital imaging was performed. COMPARISON: CR,XR XR LUMBAR SPINE COMPLETE from 12/02/2023 FINDINGS: 3 views No evidence of acute compression fracture or listhesis. No pars defects. However, on the frontal vi ew there is a subtle suggestion of an nondisplaced fracture of the left transverse process of L4. Th is, however, may be artifactual related to adjacent bowel gas. There is multilevel mild disc space narrowing and anterior osseous lipping. Bone density normal. No osseous lesions. Mild degenerative changes in the facet joints. No significant scoliosis. Sacroil iac joints appear unremarkable. IMPRESSION: Possible subtle nondisplaced fracture of the left transverse process of L4. It is possible that this is artifact and related to adjacent bowel gas. Correlation with site of tenderness is recommended. If clinically indicated follow-up CT or MRI can be performed. DATA REPOSITORY: RADIATION DOSE DELIVERED:
[2023-12-04 18:33] VITALS: BP 149/87; PULSE 102; RESP 20; TEMP 36.2; O2SAT 97
--- NOTE | 2023-12-04 18:47 | W.ED.GENAD ---
Discharge Plan Disposition Patient Disposition: Against Medical Advice Condition: Stable Discharge Details Clinical Impression: Lumbago Primary Care Provider: Jinny Hogan ED Provider: Paris Hameed Home Meds and New Rx's Prescriptions: No Action divalproex [Depakote ER] 500 mg tablet extended release 24 hr 500 mg PO DAILY escitalopram oxalate [Lexapro] 10 mg tablet 10 mg PO DAILY albuterol sulfate 90 mcg/actuation HFA aerosol inhaler See Rx Instructions .ROUTE .COMPLEX Qty: 8.5 3RF Dose Instruction: INHALE 2 PUFFS BY MOUTH EVERY 4 HOURS NEEDED FOR SHORTNESS OF BREATH OR WHEEZING Rx Instructions: INHALE 2 PUFFS BY MOUTH EVERY 4 HOURS NEEDED FOR SHORTNESS OF BREATH OR WHEEZING gabapentin 800 mg tablet 800 mg PO BID Patient Comments: TAKE 1 TABLET BY MOUTH TWICE DAILY Sublocade 100 mg/0.5 mL solution, extended rel syringe 100 mg subcut QMONTH Eliquis 5 mg tablet 2.5 mg PO BID gabapentin 300 mg capsule 300 mg PO TID PRN (Reason: pain) Qty: 30 0RF Discharge Instructions Instructions: Low Back Pain ED HPI General Mode of arrival: EMS. Date/Time Provider Initiated Documentation: 12/04/23 18:40. Limitations to Documentation: no limitations. Information obtained by: patient, EMS, RN notes reviewed and old records reviewed. HPI Narrative: 48 year old male presents to the ER after a fall onto a rock, hitting his left lower lumbar region. He was running from the police and jumped off some was not grinding area, he reports he landed on a rock. He is laying prone at this time, he is complaining of left lower lumbar pain. There is some muscle spasm noted. No obvious deformity. Past medical history includes bipolar, COPD, hepatitis C he was seen 2 days ago for lower back pain and was prescribed gabapentin. Related Data Home Medications ?Medication ?Instructions ?Recorded ?Confirmed escitalopram oxalate 10 mg tablet 10 mg PO DAILY 12/19/22 12/02/23 (Lexapro) albuterol sulfate 90 mcg/actuation See Rx Instructions .Route 02/13/23 12/02/23 aerosol inhaler .COMPLEX #8.5 grams divalproex 500 mg tablet,extended 500 mg PO DAILY 02/27/23 12/02/23 release 24 hr (Depakote ER) apixaban 5 mg tablet (Eliquis) 2.5 mg PO BID 12/02/23 12/02/23 buprenorphine 100 mg/0.5 mL 100 mg subcut QMONTH 12/02/23 12/02/23 solution,exten.rel.subcutaneous syringe (Sublocade) gabapentin 300 mg capsule 300 mg PO TID PRN pain #30 caps 12/02/23 gabapentin 800 mg tablet 800 mg PO BID 12/02/23 12/02/23 Previous Rx's ?Medication ?Instructions ?Recorded albuterol sulfate 90 mcg/actuation See Rx Instructions .Route 02/13/23 aerosol inhaler .COMPLEX #8.5 grams gabapentin 300 mg capsule 300 mg PO TID PRN pain #30 caps 12/02/23 Allergies Allergy/AdvReac Type Severity Reaction Status Date / Time No Known Allergies Allergy Verified 12/02/23 12:42 General Stated Complaint: Nk/Back Pain JENNIFER: 3 Review of Systems All systems reviewed & are unremarkable except as noted in HPI and below Musculoskeletal Musculoskeletal: Reports back pain and Reports radiating pain into limb Exam Narrative Exam Narrative: General: Well Developed, Awake and Alert, conversant.Yelling, refusing medications and yelling obscenities to staff. Skin: Warm and Dry HEENT: Head: No palpable deformities, Normocephalic Eyes: Pupils PERRLA, EOM's intact. No periorbital eccymosis or step off Ears: Canal patent. Tympanic membranes are clear . No shearer's sign, no hemptympanum. Nose/Face: Atraumatic. Facial bones nontender to palpation and stable with manipulation. Mouth/Throat: No intraoral trauma. Teeth and mandible are intact. Neck: No midline tenderness, no step off, no deformity to palpation of C-spine. Trachea midline. Chest: No surface trauma. Nontender without crepitus or deformity. Lungs clear to ausculatation bilaterally. Heart: RRR, no rubs, murmurs or gallop. Abdomen: No abrasions, ecchymosis, or surface trauma. Nondistended. Nontender to palpation no guarding, rebound, or rigidity. Pelvis: Nontender to palpation and stable to compression. Femoral pulses strong and equal Extremities: no surface trauma. Sensation intact. Peripheral pulses intact and equal. Neuro: ANO x4, GCS 15, cranial nerves II through XII intact. Motor and sensory exam nonfocal. Reflexes are symmetric. Course Vital Signs Vital signs: Vital Signs Temperature 36.2 C L 12/04/23 18:33 Pulse 102 H 12/04/23 18:33 Respiratory Rate 20 12/04/23 18:33 Blood Pressure 149/87 H 12/04/23 18:33 Pulse Oximetry 97 12/04/23 18:33 Temperature 36.2 C L 12/04/23 18:33 Pulse 102 H 12/04/23 18:33 Respiratory Rate 20 12/04/23 18:33 Blood Pressure 149/87 H 12/04/23 18:33 Blood Pressure Position Sitting 12/04/23 18:33 Pulse Oximetry 97 12/04/23 18:33 Oxygen Delivery Method Room Air 12/04/23 18: Oxygen Flow Rate 0 12/04/23 18:33 Medical Decision Making 48 year old male presents to the ER after a fall onto a rock, hitting his left lower lumbar region. He was running from the police and jumped off some was not grinding area, he reports he landed on a rock. He is laying prone at this time, he is complaining of left lower lumbar pain. There is some muscle spasm noted. No obvious deformity. Past medical history includes bipolar, COPD, hepatitis C he was seen 2 days ago for lower back pain and was prescribed gabapentin. Lumbar spine x-rays ordered, lidocaine patch, Tylenol, and Flexeril. Patient refused PO medications. Patient returned from imaging requesting to leave. Patient ambulatory without assistance on his own. Patient left prior to his results of the imaging. Quality:SDOH Health Related Social Needs: No Data to Display PFSH All Active Problems (Updated 12/04/23 @ 19:40 by Paris Hameed NP) Lumbago (Acute) Lumbar back pain (Acute) Grade II internal hemorrhoids (Acute) Screening for malignant neoplasm of colon performed (Acute) Carpal tunnel syndrome (Acute) No-show for appointment (Acute) Tendonitis of long head of biceps brachii of right shoulder (Acute) Bursitis of right shoulder (Acute) Bipolar I disorder (Acute) Mixed hyperlipidemia (Acute) COPD (chronic obstructive pulmonary disease) (Chronic) Viral hepatitis C (Chronic) HTN (hypertension) (Chronic) Sprain of right acromioclavicular joint (Acute ~12/2021) Medical History Primary osteoarthritis, right shoulder (~08/2023) 09/24/23 Orthopedics R shoulder arthroscopy planned Elevated liver enzymes Intervertebral disc disorder with radiculopathy of lumbar region Bipolar affective disorder Surgical History History of colonoscopy (~02/2023) History of cholecystectomy (~2012) No significant past surgical history Social History Smoking/Tobacco Use Status: Current every day Tobacco Type: cigarettes Quit status: considering quitting Second Hand Exposure: No Smoking risk assessment performed?: Yes Alcohol Intake: former Counseling given: No Drug use: Occasionally Substance use type: former substance user and marijuana Counseling given: No Details: Last dose of MJ was this AM Adopted: No Caregiver/Support person: No Foster care: No Household members: significant other Housing: house Number of Children: 1 Communication Needs: None Do you need help understanding health information?: Never 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 - [employer] Pets and animals: Yes Pets and animals: dog(s) Do you think of yourself as: straight/heterosexual Current gender identity: male What is your relationship status?: How often do you talk on the phone with friends or family?: twice per week How often do you get together with friends or relatives?: once per week Do you belong to any clubs or organized social groups?: no Panel score (0-1 are the most socially isolated patients): 1 NHANES result reviewed/action taken: No What type of physical activity do you participate in: none Seatbelt use: always Helmet use: Yes Drive intox or ride w/intox truck driver heavy: No Working smoke detector in home: Yes Fire extinguisher in home: Yes Carbon monox detector in home: Yes Do you feel safe at home: Yes Do you feel safe in your relationship?: Yes
[2023-12-04] MEDS: Lidocaine 5% Patch 1 PATCH TP (18:59)
--- NOTE | 2023-12-04 19:04 | NUR.NOTE ---
pt was instructed to put on a gown for xray, pt decline stating fuck that, I did not need one last time. This commercial underwriter informed the patient that the area that needs to be xrayed is covered by his jeans and a gown is protocol. pt stated that this writers should Haul off and help me then This commercial underwriter assisted pt in changing into gown providing for privacy. Pt then accused this commercial underwriter of wanting to see his pecker This commercial underwriter redirected the patient ensuring changing into a gown was protocol and left the room. call hernandes left in reach and side rails in place.
--- NOTE | 2023-12-04 20:28 | DI.VRAD_ITS ---
PROCEDURE INFORMATION: Exam: XR Lumbosacral Spine Exam date and time: 12/04/2023 7:17 PM Age: 48 years old Clinical indication: Injury or trauma; Fall; Blunt trauma (contusions or hematomas); Injury date: 12/04/23; Injury details: Fell on a rock when running from law enforcement; Patient HX: Back pain TECHNIQUE: Imaging protocol: Radiologic exam of the lumbosacral spine. Views: 2 or 3 views. COMPARISON: CR XR LUMBAR SPINE COMPLETE 12/02/2023 3:22 PM FINDINGS: Bones/joints: Osseous alignment is normal. No vertebral body compression or acute fracture. Mild multilevel disc space narrowing and uncovertebral spurring. No other significant arthritic change. Soft tissues: Unremarkable. IMPRESSION: No acute abnormality. Mild degenerative changes as noted. Dictated and Authenticated by: Duong Lawson MD. Ordering:ALEXANDRE Toledo MD
== END 2023-12-04 19:40 | disposition left against medical advice (07) ==
PROVIDERS: Emergency Provider Registered Nurse Emergency; PCP Nurse Practitioner
DX: M54.50 Low back pain, unspecified (principal); W19.XXXA Unspecified fall, initial encounter; Z65.3 Problems related to other legal circumstances
CPT/HCPCS: 99283; 72100

== ENCOUNTER 2023-12-05 13:35 | Emergency (ER) | payer MEDICAID, SELFPAY ==
[2023-12-05 13:34] VITALS: BP 130/71; PULSE 89; RESP 15; TEMP 36.4; O2SAT 100
--- NOTE | 2023-12-05 13:48 | ED.GENADUL_ITS ---
Discharge Plan Discharge Details Chief Complaint: ETOHWithdr Primary Care Provider: Jinny Hogan ED Provider: Evan Vargas Home Meds and New Rx's Prescriptions: No Action divalproex [Depakote ER] 500 mg tablet extended release 24 hr 500 mg PO DAILY escitalopram oxalate [Lexapro] 10 mg tablet 10 mg PO DAILY albuterol sulfate 90 mcg/actuation HFA aerosol inhaler See Rx Instructions .ROUTE .COMPLEX Qty: 8.5 3RF Dose Instruction: INHALE 2 PUFFS BY MOUTH EVERY 4 HOURS NEEDED FOR SHORTNESS OF BREATH OR WHEEZING Rx Instructions: INHALE 2 PUFFS BY MOUTH EVERY 4 HOURS NEEDED FOR SHORTNESS OF BREATH OR WHEEZING gabapentin 800 mg tablet 800 mg PO BID Patient Comments: TAKE 1 TABLET BY MOUTH TWICE DAILY Sublocade 100 mg/0.5 mL solution, extended rel syringe 100 mg subcut QMONTH Eliquis 5 mg tablet 2.5 mg PO BID gabapentin 300 mg capsule 300 mg PO TID PRN (Reason: pain) Qty: 30 0RF HPI General Date/Time Provider Initiated Documentation: 12/05/23 13:38 . HPI Narrative: 48-year-old male brought in by law enforcement for evaluation of public intoxication. Patient endorses drinking earlier today. Breathalyzer alcohol level 0.245. Patient resting intermittently refusing to participate with history and physical. Related Data Home Medications ?Medication ?Instructions ?Recorded ?Confirmed escitalopram oxalate 10 mg tablet 10 mg PO DAILY 12/19/22 12/02/23 (Lexapro) albuterol sulfate 90 mcg/actuation See Rx Instructions .Route 02/13/23 12/02/23 aerosol inhaler .COMPLEX #8.5 grams divalproex 500 mg tablet,extended 500 mg PO DAILY 02/27/23 12/02/23 release 24 hr (Depakote ER) apixaban 5 mg tablet (Eliquis) 2.5 mg PO BID 12/02/23 12/02/23 buprenorphine 100 mg/0.5 mL 100 mg subcut QMONTH 12/02/23 12/02/23 solution,exten.rel.subcutaneous syringe (Sublocade) gabapentin 300 mg capsule 300 mg PO TID PRN pain #30 caps 12/02/23 gabapentin 800 mg tablet 800 mg PO BID 12/02/23 12/02/23 Previous Rx's ?Medication ?Instructions ?Recorded albuterol sulfate 90 mcg/actuation See Rx Instructions .Route 02/13/23 aerosol inhaler .COMPLEX #8.5 grams gabapentin 300 mg capsule 300 mg PO TID PRN pain #30 caps 12/02/23 Allergies Allergy/AdvReac Type Severity Reaction Status Date / Time No Known Allergies Allergy Verified 12/02/23 12:42 General Stated Complaint: ETOHWithdr JENNIFER: 3 Exam Narrative Exam Narrative: Sleeping however alert and arousable Moist mucous membranes tolerating secretions Pupils round reactive equal to light, normal conjunctiva Lungs clear bilaterally no wheezes rales or rhonchi Normal heart sounds no murmurs rubs or gallops Abdomen soft nontender nondistended No midline spinal tenderness step-off crepitus or deformity Moving all extremities that deficit, cranial nerves intact Generally calm however becomes somewhat angry when asked to perform movements during physical examination then will return to going back to sleep Course Vital Signs Vital signs: Vital Signs Temperature 36.4 C L 12/05/23 13:34 Pulse 89 12/05/23 13:34 Respiratory Rate 15 12/05/23 13:34 Blood Pressure 130/71 12/05/23 13:34 Pulse Oximetry 100 12/05/23 13:34 Temperature 36.4 C L 12/05/23 13:34 Pulse 89 12/05/23 13:34 Respiratory Rate 15 12/05/23 13:34 Blood Pressure 130/71 12/05/23 13:34 Pulse Oximetry 100 12/05/23 13:34 Medical Decision Making 48-year-old male brought in by PD for evaluation of public intoxication, patient endorses alcohol consumption today, breathalyzer 0.245, no external signs of trauma, patient hemodynamically stable afebrile nontoxic, sleeping on arrival however arousable to voice, intermittently aggravated with history and physical however calm and largely cooperative. Fingerstick 86. No focal neurologic deficits, appears well-hydrated, nonperitoneal and no respiratory distress. High clinical suspicion for simple alcohol intoxication. Lower suspicion for intracranial trauma seizure electrolyte derangement or infectious etiology. Will observe patient here in department if appropriately sobering will reassess for discharge if not appropriately improving will consider initiating labs and imaging at that juncture. 14: 38 resting notably no acute distress. Still needs some time to sober 15: 33 patient was able to climb over side rail of his bed found upright in his room wandering, still unsteady on his feet need assistance to the restroom. No external signs of trauma. Moving all extremities without deficit. Will continue to monitor for sobriety 17: 15 patient more interactive sitting up in bed, may have fallen in room unwitnessed patient unclear whether he hit his head. Given initial presentation intoxication and Eliquis use have added CT head. Will continue to assess mental status. Patient tolerating p.o. blood sugar normal. Disposition Home if CT head unremarkable and patient continues to sober Quality:SDOH Health Related Social Needs: No Data to Display [facility] All Active Problems (Updated 12/04/23 @ 19:40 by Paris Hameed NP) Lumbago (Acute) Lumbar back pain (Acute) Grade II internal hemorrhoids (Acute) Screening for malignant neoplasm of colon performed (Acute) Carpal tunnel syndrome (Acute) No-show for appointment (Acute) Tendonitis of long head of biceps brachii of right shoulder (Acute) Bursitis of right shoulder (Acute) Bipolar I disorder (Acute) Mixed hyperlipidemia (Acute) COPD (chronic obstructive pulmonary disease) (Chronic) Viral hepatitis C (Chronic) HTN (hypertension) (Chronic) Sprain of right acromioclavicular joint (Acute ~12/2021) Medical History Primary osteoarthritis, right shoulder (~08/2023) 09/24/23 Orthopedics R shoulder arthroscopy planned Elevated liver enzymes Intervertebral disc disorder with radiculopathy of lumbar region Bipolar affective disorder Surgical History History of colonoscopy (~02/2023) History of cholecystectomy (~2012) No significant past surgical history Social History Smoking/Tobacco Use Status: Current every day Tobacco Type: cigarettes Quit status: considering quitting Second Hand Exposure: No Smoking risk assessment performed?: Yes Alcohol Intake: former Counseling given: No Drug use: Occasionally Substance use type: former substance user and marijuana Counseling given: No Details: Last dose of MJ was this AM Adopted: No Caregiver/Support person: No Foster care: No Household members: significant other Housing: house Number of Children: 1 Communication Needs: None Do you need help understanding health information?: Never 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 [employer] Pets and animals: Yes Pets and animals: dog(s) Do you think of yourself as: straight/heterosexual Current gender identity: male What is your relationship status?: How often do you talk on the phone with friends or family?: twice per week How often do you get together with friends or relatives?: once per week Do you belong to any clubs or organized social groups?: no Panel score (0-1 are the most socially isolated patients): 1 NHANES result reviewed/action taken: No What type of physical activity do you participate in: none Seatbelt use: always Helmet use: Yes Drive intox or ride w/intox front end driver: No Working smoke detector in home: Yes Fire extinguisher in home: Yes Carbon monox detector in home: Yes Do you feel safe at home: Yes Do you feel safe in your relationship?: Yes
--- NOTE | 2023-12-05 15:26 | NUR.NOTE ---
Nursing Note: patient found by provider on floor yelling I fell. Provider and this RN walked patient to bathroom. RN and security walked patient back to room after patient voided. Patient compliant with laying on stretcher. patient denies pain, call light within reach of patient at this time
--- NOTE | 2023-12-05 17:19 | DI.CT_ITS ---
Exam(s) CT HEAD WO EXAM: CT HEAD WO CLINICAL HISTORY: fall, ams. TECHNIQUE: Imaging Protocol: Axial computed tomography images with coronal and sagittal reformatted images were created and reviewed COMPARISON: No exams were available for comparison FINDINGS: Ventricles and Extra axial spaces: Normal in size and morphology for the patient's age. Hemorrhage: None. Cerebral parenchyma: No evidence of acute infarct or mass. Midline shift: None. Brainstem/Cerebellum: Normal. Calvarium: Normal. Visualized Paranasal sinuses:Mucosal thickening and mucous retention in the ethmoid sinuses. Mastoids: Clear. Soft Tissues: Unremarkable. ORBITS: Unremarkable. PITUITARY: Not enlarged. IMPRESSION: No acute intracranial process. RADIATION DOSE DELIVERED: Total DLP DATA REPOSITORY: All CT scans at this facility are submitted to the National Radiology Data Registry (NRDR) Dose Index Registry (DIR) with the [employer] (ACR). RADIATION OPTIMIZATION: All CT scans at this facility use at least one of these dose optimization te chniques: automated exposure control; mA and/or kV adjustment per patient size (includes targeted exa ms where dose is matched to clinical indication); or iterative reconstruction.
--- NOTE | 2023-12-05 17:54 | ED.PROG_ITS ---
Date of service: 12/05/23 Time of Service: 17:54 Medical Decision Making Patient's head CT unremarkable, patient stable ambulating with normal gait, he has no complaints and is currently clinically sober. He is stable for discharge and will follow-up with his PCP, return precautions given. Quality:[facility] Health Related Social Needs: No Data to Display Sign Out Sign Out Data: Sign Out Comment: pending CT head, and sobriety reassessment for dc home Last updated by Evan Vargas MD at 12/05/23 17:18 Discharge Plan Disposition Patient Disposition: Home Condition: Stable Discharge Details Clinical Impression: Alcohol intoxication Primary Care Provider: Jinny Hogan ED Provider: Reid Garcia Home Meds and New Rx's Prescriptions: Continued divalproex [Depakote ER] 500 mg tablet extended release 24 hr 500 mg PO DAILY escitalopram oxalate [Lexapro] 10 mg tablet 10 mg PO DAILY albuterol sulfate 90 mcg/actuation HFA aerosol inhaler See Rx Instructions .ROUTE .COMPLEX Qty: 8.5 3RF Dose Instruction: INHALE 2 PUFFS BY MOUTH EVERY 4 HOURS NEEDED FOR SHORTNESS OF BREATH OR WHEEZING Rx Instructions: INHALE 2 PUFFS BY MOUTH EVERY 4 HOURS NEEDED FOR SHORTNESS OF BREATH OR WHEEZING gabapentin 800 mg tablet 800 mg PO BID Patient Comments: TAKE 1 TABLET BY MOUTH TWICE DAILY Sublocade 100 mg/0.5 mL solution, extended rel syringe 100 mg subcut QMONTH Eliquis 5 mg tablet 2.5 mg PO BID gabapentin 300 mg capsule 300 mg PO TID PRN (Reason: pain) Qty: 30 0RF Discharge Instructions Additional Instructions: Follow-up with your primary care provider within 1 to 2 weeks Limit alcohol use to 1-2 beverages per day. If you feel more ill or feel you are suffering from emergent medical process return to the emergency department for reevaluation
== END 2023-12-05 18:42 | disposition home or self-care (01) ==
PROVIDERS: Emergency Provider Emergency Medicine; PCP Nurse Practitioner
DX: F10.220 Alcohol dependence with intoxication, uncomplicated (principal); F10.230 Alcohol dependence with withdrawal, uncomplicated; I10 Essential (primary) hypertension; E78.2 Mixed hyperlipidemia; F17.210 Nicotine dependence, cigarettes, uncomplicated; Z79.01 Long term (current) use of anticoagulants; Y90.8 Blood alcohol level of 240 mg/100 ml or more
CPT/HCPCS: 00123; 82962; 99284; 70450; 99283